=== PATIENT | female | born 1980 | race Caucasian/White ===

== ENCOUNTER 2019-12-16 16:41 | Outpatient (REF) | payer OTHER, SELFPAY ==
[2019-12-16 17:24] LABS: MANUAL DIFF FLAG NO
[2019-12-16 17:31] LABS: Basophils Percent Auto 0.4 % (0-2); Eosinophils Absolute Auto 0.1 X10*3/uL (0.0-0.4); Eosinophils Percent Auto 1.2 % (0-4); Hematocrit 34.7 % (37-47); Hemoglobin 11.7 g/dl (12.0-16.0); Imm Gran Abs Auto 0.03 X10*3/uL (0.00-0.03); Imm Gran Pct Auto 0.4 % (0.0-0.4); Mean Corpuscular HGB Conc 33.7 g/dl (31.0-35.0); Mean Corpuscular Hemoglobin 29.8 pg (27.0-33.0); Mean Corpuscular Volume 88.5 fL (80-98); Mean Platelet Volume 10.4 fL (9.4-12.3); Monocytes Absolute Auto 0.5 X10*3/uL (0.1-1.2); Neutrophils Absolute Auto 5.9 X10*3/uL (2.0-8.3); Platelet Count 487 X10*3/uL (160-400); Red Blood Count 3.92 X10*6/uL (4.20-5.50); White Blood Count 8.6 X10*3/uL (4.8-10.8)
[2019-12-16 17:56] LABS: Alanine Aminotransferase 12 U/L (0-31); Albumin Level 4.1 g/dL (3.5-5.0); Alkaline Phosphatase 54 U/L (39-117); Anion Gap 11 (12-20); Aspartate Amino Transferase 14 U/L (5-31); Bilirubin Total 0.4 mg/dL (0.0-1.0); Blood Urea Nitrogen 12 mg/dL (9-16); C Reactive Protein 2.03 mg/dL (< or = 0.50); Calcium 8.9 mg/dL (8.4-10.2); Carbon Dioxide 24 mmol/L (22-29); Chloride 109 mmol/L (96-108); Estimated Glomerular Filt Rate > 60; Glucose Random 86 mg/dL (60-115); Sodium 140 mmol/L (135-145); Total Protein 7.3 g/dL (6.5-8.0)
[2019-12-16 18:25] LABS: Erythrocyte Sedimentation Rate 34 MM/HR (0-20)
== END 2019-12-16 16:42 | disposition home or self-care (01) ==
LOC: HO.LAB 16:41
PROVIDERS: PCP Internal Medicine; Visit Provider Student in an Organized Health Care Education/Training Program
DX: M05.9 Rheumatoid arthritis with rheumatoid factor, unspecified (principal); Z79.899 Other long term (current) drug therapy
CPT/HCPCS: 36415; 80053; 85025; 85652; 86140

== ENCOUNTER → 2020-01-14 08:01 | Outpatient (BNVA) | payer OTHER, SELFPAY | PROVIDERS: PCP Internal Medicine; Referring Provider Internal Medicine; Visit Provider Student in an Organized Health Care Education/Training Program | DX: Z76.89 Persons encountering health services in other specified circumstances (principal) ==

== ENCOUNTER → 2020-02-22 14:01 | Outpatient (BNVA) | payer OTHER, SELFPAY | PROVIDERS: PCP Internal Medicine; Visit Provider Student in an Organized Health Care Education/Training Program | DX: Z76.89 Persons encountering health services in other specified circumstances (principal) ==

== ENCOUNTER 2020-05-24 10:38 | Outpatient (REF) | payer OTHER, SELFPAY ==
[2020-05-24 11:08] LABS: MANUAL DIFF FLAG NO
[2020-05-24 11:24] LABS: Basophils Percent Auto 0.5 % (0-2); Eosinophils Absolute Auto 0.2 X10*3/uL (0.0-0.4); Eosinophils Percent Auto 3.4 % (0-4); Hematocrit 38.1 % (37-47); Hemoglobin 12.6 g/dl (12.0-16.0); Imm Gran Abs Auto 0.01 X10*3/uL (0.00-0.03); Imm Gran Pct Auto 0.2 % (0.0-0.4); Lymphocytes Absolute Auto 1.9 X10*3/uL (1.2-4.9); Lymphocytes Percent Auto 31.1 % (20-40); Mean Corpuscular HGB Conc 33.1 g/dl (31.0-35.0); Mean Corpuscular Hemoglobin 29.4 pg (27.0-33.0); Mean Corpuscular Volume 88.8 fL (80-98); Mean Platelet Volume 10.5 fL (9.4-12.3); Monocytes Absolute Auto 0.4 X10*3/uL (0.1-1.2); Monocytes Percent Auto 5.9 % (2-11); Neutrophils Absolute Auto 3.6 X10*3/uL (2.0-8.3); Neutrophils Percent Auto 58.9 % (45-73); Platelet Count 427 X10*3/uL (160-400); Red Blood Count 4.29 X10*6/uL (4.20-5.50); Red Cell Distribution Width 13.2 % (11.0-16.0); White Blood Count 6.1 X10*3/uL (4.8-10.8)
[2020-05-24 11:50] LABS: Alanine Aminotransferase 14 U/L (0-31); Albumin Level 4.3 g/dL (3.5-5.0); Alkaline Phosphatase 51 U/L (39-117); Anion Gap 11 (12-20); Aspartate Amino Transferase 13 U/L (5-31); Bilirubin Total 0.6 mg/dL (0.0-1.0); Blood Urea Nitrogen 12 mg/dL (9-16); C Reactive Protein 0.73 mg/dL (< or = 0.50); Carbon Dioxide 23 mmol/L (22-29); Chloride 109 mmol/L (96-108); Estimated Glomerular Filt Rate > 60; Glucose Random 96 mg/dL (60-115); Potassium 4.8 mmol/L (3.3-5.1); Sodium 138 mmol/L (135-145); Total Protein 7.3 g/dL (6.5-8.0)
[2020-05-24 12:44] LABS: Erythrocyte Sedimentation Rate 23 MM/HR (0-20)
== END 2020-05-24 10:39 | disposition home or self-care (01) ==
LOC: HO.LAB 10:38
PROVIDERS: Visit Provider Student in an Organized Health Care Education/Training Program
DX: M05.9 Rheumatoid arthritis with rheumatoid factor, unspecified (principal)
CPT/HCPCS: 36415; 80053; 85025; 85652; 86140

== ENCOUNTER → 2020-06-02 10:40 | Outpatient (BNVA) | payer OTHER, SELFPAY | PROVIDERS: PCP Internal Medicine; Visit Provider Student in an Organized Health Care Education/Training Program ==

== ENCOUNTER 2020-11-01 14:43 | Outpatient (REF) | payer OTHER, SELFPAY ==
[2020-11-01 15:19] LABS: MANUAL DIFF FLAG NO
[2020-11-01 15:24] LABS: Basophils Percent Auto 0.4 % (0-2); Eosinophils Absolute Auto 0.2 X10*3/uL (0.0-0.4); Eosinophils Percent Auto 2.5 % (0-4); Hematocrit 36.7 % (37-47); Hemoglobin 12.6 g/dl (12.0-16.0); Imm Gran Abs Auto 0.02 X10*3/uL (0.00-0.03); Imm Gran Pct Auto 0.3 % (0.0-0.4); Lymphocytes Absolute Auto 2.2 X10*3/uL (1.2-4.9); Lymphocytes Percent Auto 29.3 % (20-40); Mean Corpuscular HGB Conc 34.3 g/dl (31.0-35.0); Mean Corpuscular Hemoglobin 30.7 pg (27.0-33.0); Mean Corpuscular Volume 89.5 fL (80-98); Mean Platelet Volume 10.1 fL (9.4-12.3); Monocytes Absolute Auto 0.4 X10*3/uL (0.1-1.2); Monocytes Percent Auto 5.6 % (2-11); Neutrophils Absolute Auto 4.6 X10*3/uL (2.0-8.3); Neutrophils Percent Auto 61.9 % (45-73); Platelet Count 423 X10*3/uL (160-400); Red Cell Distribution Width 13.6 % (11.0-16.0); White Blood Count 7.3 X10*3/uL (4.8-10.8)
[2020-11-01 15:53] LABS: Alanine Aminotransferase 36 U/L (0-31); Albumin Level 4.4 g/dL (3.5-5.0); Alkaline Phosphatase 52 U/L (39-117); Anion Gap 13 (12-20); Aspartate Amino Transferase 18 U/L (5-31); Bilirubin Total 0.6 mg/dL (0.0-1.0); Blood Urea Nitrogen 11 mg/dL (9-16); C Reactive Protein 0.28 mg/dL (< or = 0.50); Calcium 9.4 mg/dL (8.4-10.2); Carbon Dioxide 22 mmol/L (22-29); Chloride 109 mmol/L (96-108); Estimated Glomerular Filt Rate > 60; Glucose Random 106 mg/dL (60-115); Potassium 4.6 mmol/L (3.3-5.1); Sodium 139 mmol/L (135-145); Total Protein 7.3 g/dL (6.5-8.0)
[2020-11-01 16:09] LABS: Erythrocyte Sedimentation Rate 12 MM/HR (0-20)
== END 2020-11-01 14:44 | disposition home or self-care (01) ==
LOC: HO.LAB 14:43
PROVIDERS: PCP Internal Medicine; Visit Provider Student in an Organized Health Care Education/Training Program
DX: M05.9 Rheumatoid arthritis with rheumatoid factor, unspecified (principal)
CPT/HCPCS: 36415; 80053; 85025; 85652; 86140

== ENCOUNTER → 2021-01-18 11:28 | Outpatient (BNVA) | payer OTHER, SELFPAY | PROVIDERS: PCP Internal Medicine; Visit Provider Nurse Practitioner Family ==

== ENCOUNTER 2021-01-23 11:52 | Outpatient (REF) | payer OTHER, SELFPAY ==
[2021-01-23 12:07] LABS: MANUAL DIFF FLAG NO
[2021-01-23 12:39] LABS: Basophils Percent Auto 0.4 % (0-2); Eosinophils Absolute Auto 0.2 X10*3/uL (0.0-0.4); Hematocrit 36.6 % (37.0-47.0); Hemoglobin 12.4 g/dl (12.0-16.0); Imm Gran Abs Auto 0.02 X10*3/uL (0.00-0.03); Imm Gran Pct Auto 0.3 % (0.0-0.4); Lymphocytes Absolute Auto 2.4 X10*3/uL (1.2-4.9); Lymphocytes Percent Auto 31.9 % (20-40); Mean Corpuscular HGB Conc 33.9 g/dl (31.0-35.0); Mean Corpuscular Hemoglobin 30.5 pg (27.0-33.0); Mean Corpuscular Volume 90.1 fL (80.0-98.0); Mean Platelet Volume 10.4 fL (9.4-12.3); Monocytes Absolute Auto 0.5 X10*3/uL (0.1-1.2); Monocytes Percent Auto 6.2 % (2-11); Neutrophils Absolute Auto 4.4 x10*3/uL (2.0-8.3); Neutrophils Percent Auto 59.2 % (45-73); Platelet Count 444 X10*3/uL (160-400); Red Blood Count 4.06 X10*6/uL (4.20-5.50); Red Cell Distribution Width 13.5 % (11.0-16.0); White Blood Count 7.4 X10*3/uL (4.8-10.8)
[2021-01-23 13:45] LABS: Alanine Aminotransferase 32 U/L (0-31); Albumin Level 4.2 g/dL (3.5-5.0); Alkaline Phosphatase 57 U/L (39-117); Anion Gap 14 (12-20); Aspartate Amino Transferase 18 U/L (5-31); Bilirubin Total 0.7 mg/dL (0.0-1.0); Blood Urea Nitrogen 10 mg/dL (9-16); C Reactive Protein 3.08 mg/dL (< or = 0.50); Calcium 9.1 mg/dL (8.4-10.2); Carbon Dioxide 20 mmol/L (22-29); Chloride 110 mmol/L (96-108); Estimated Glomerular Filt Rate > 60; Glucose Random 111 mg/dL (60-115); Potassium 4.2 mmol/L (3.3-5.1); Sodium 140 mmol/L (135-145); Total Protein 7.2 g/dL (6.5-8.0)
[2021-01-23 13:50] LABS: Erythrocyte Sedimentation Rate 28 MM/HR (0-20)
== END 2021-01-23 11:53 | disposition home or self-care (01) ==
LOC: HO.LAB 11:52
PROVIDERS: Visit Provider Nurse Practitioner Family
DX: M05.9 Rheumatoid arthritis with rheumatoid factor, unspecified (principal); Z79.899 Other long term (current) drug therapy
CPT/HCPCS: 36415; 80053; 85025; 85652; 86140

== ENCOUNTER → 2021-04-24 11:33 | Outpatient (BNVA) | payer OTHER, SELFPAY | PROVIDERS: PCP Internal Medicine; Visit Provider Nurse Practitioner Family ==

== ENCOUNTER 2021-04-26 10:11 | Outpatient (REF) | payer OTHER, SELFPAY ==
--- NOTE | ~2021-04-26 | XR_ITS ---
EXAMINATION: XR TEMPOROMANDIBULAR JOINT, BILATERAL CLINICAL INFORMATION: Rheumatoid arthritis with rheumatoid factor. COMPARISON: None TECHNIQUE: Sarah view and open and closed mouth views of the temporomandibular joints bilaterally. FINDINGS: Imaging is very limited due to overlap of structures. Visualized mastoid air cells and paranasal sinuses are unremarkable. I can only comment on positioning with what appears to be normal translation from anterior to closed positions of the temporomandibular joints. I cannot comment on whether there may be flattening of temporal mandibular joint head or any specific bony abnormality. I can only state that on closed mouth views the mandibular heads appear to be within the temporomandibular joints and on open view they appear to be at the anterior margin of the temporomandibular joints. XR/XR TMJ BI IMPRESSION: Very limited study of the temporomandibular joints with what appears to be normal translation between open and closed mouth views. Aerated paranasal sinuses and mastoid air cells.
[2021-04-26 11:26] LABS: MANUAL DIFF FLAG NO
[2021-04-26 13:00] LABS: Basophils Percent Auto 0.5 % (0-2); Eosinophils Absolute Auto 0.2 X10*3/uL (0.0-0.4); Eosinophils Percent Auto 3.5 % (0-4); Hematocrit 37.9 % (37.0-47.0); Hemoglobin 12.5 g/dl (12.0-16.0); Imm Gran Abs Auto 0.02 X10*3/uL (0.00-0.03); Imm Gran Pct Auto 0.3 % (0.0-0.4); Lymphocytes Absolute Auto 1.9 X10*3/uL (1.2-4.9); Lymphocytes Percent Auto 31.2 % (20-40); Mean Corpuscular Hemoglobin 29.6 pg (27.0-33.0); Mean Corpuscular Volume 89.6 fL (80.0-98.0); Mean Platelet Volume 10.7 fL (9.4-12.3); Monocytes Absolute Auto 0.7 X10*3/uL (0.1-1.2); Monocytes Percent Auto 11.3 % (2-11); Neutrophils Absolute Auto 3.2 x10*3/uL (2.0-8.3); Neutrophils Percent Auto 53.2 % (45-73); Platelet Count 425 X10*3/uL (160-400); Red Blood Count 4.23 X10*6/uL (4.20-5.50); Red Cell Distribution Width 13.6 % (11.0-16.0)
[2021-04-26 13:34] LABS: Alanine Aminotransferase 21 U/L (0-31); Albumin Level 4.1 g/dL (3.5-5.0); Alkaline Phosphatase 52 U/L (39-117); Anion Gap 11 (12-20); Aspartate Amino Transferase 15 U/L (5-31); Bilirubin Total 0.4 mg/dL (0.0-1.0); Blood Urea Nitrogen 14 mg/dL (9-16); C Reactive Protein 0.33 mg/dL (< or = 0.50); Calcium 9.2 mg/dL (8.4-10.2); Carbon Dioxide 24 mmol/L (22-29); Chloride 109 mmol/L (96-108); Estimated Glomerular Filt Rate > 60; Glucose Random 83 mg/dL (60-115); Potassium 4.6 mmol/L (3.3-5.1); Sodium 139 mmol/L (135-145); Total Protein 7.3 g/dL (6.5-8.0)
[2021-04-26 14:08] LABS: Erythrocyte Sedimentation Rate 16 MM/HR (0-20)
== END 2021-04-26 10:12 | disposition home or self-care (01) ==
LOC: HO.XRAY 10:11
PROVIDERS: Visit Provider Nurse Practitioner Family
DX: M05.9 Rheumatoid arthritis with rheumatoid factor, unspecified (principal)
CPT/HCPCS: 36415; 70330; 80053; 85025; 85652; 86140

== ENCOUNTER 2021-08-15 10:09 | Outpatient (REF) | payer OTHER, SELFPAY ==
--- NOTE | ~2021-08-15 | XR_ITS ---
EXAMINATION: LATERAL CLINICAL INFORMATION: Rheumatoid arthritis with knee pain COMPARISON: None TECHNIQUE: Bilateral knees 3 views each FINDINGS: There is no evidence of erosive changes of changes of osteoarthritis. Bones are well-mineralized. Soft tissues are normal. There is no joint effusion is seen bilaterally XR/XR knee LT 3V IMPRESSION: Normal knees bilaterally
--- NOTE | ~2021-08-15 | XR_ITS ---
EXAMINATION: LATERAL CLINICAL INFORMATION: Rheumatoid arthritis with knee pain COMPARISON: None TECHNIQUE: Bilateral knees 3 views each FINDINGS: There is no evidence of erosive changes of changes of osteoarthritis. Bones are well-mineralized. Soft tissues are normal. There is no joint effusion is seen bilaterally XR/XR knee RT 3V IMPRESSION: Normal knees bilaterally
[2021-08-15 10:57] LABS: MANUAL DIFF FLAG NO
[2021-08-15 11:37] LABS: Basophils Percent Auto 0.7 % (0-2); Eosinophils Absolute Auto 0.2 X10*3/uL (0.0-0.4); Eosinophils Percent Auto 4.2 % (0-4); Hematocrit 36.1 % (37.0-47.0); Hemoglobin 12.1 g/dl (12.0-16.0); Imm Gran Abs Auto 0.01 X10*3/uL (0.00-0.03); Imm Gran Pct Auto 0.2 % (0.0-0.4); Lymphocytes Absolute Auto 1.6 X10*3/uL (1.2-4.9); Lymphocytes Percent Auto 35.3 % (20-40); Mean Corpuscular HGB Conc 33.5 g/dl (31.0-35.0); Mean Corpuscular Hemoglobin 29.9 pg (27.0-33.0); Mean Corpuscular Volume 89.1 fL (80.0-98.0); Mean Platelet Volume 10.4 fL (9.4-12.3); Monocytes Absolute Auto 0.4 X10*3/uL (0.1-1.2); Monocytes Percent Auto 9.1 % (2-11); Neutrophils Absolute Auto 2.3 x10*3/uL (2.0-8.3); Neutrophils Percent Auto 50.5 % (45-73); Platelet Count 387 X10*3/uL (160-400); Red Blood Count 4.05 X10*6/uL (4.20-5.50); Red Cell Distribution Width 13.9 % (11.0-16.0); White Blood Count 4.5 X10*3/uL (4.8-10.8)
[2021-08-15 12:10] LABS: Alanine Aminotransferase 16 U/L (0-31); Albumin Level 3.9 g/dL (3.5-5.0); Alkaline Phosphatase 49 U/L (39-117); Anion Gap 11 (12-20); Aspartate Amino Transferase 15 U/L (5-31); Bilirubin Total 0.6 mg/dL (0.0-1.0); Blood Urea Nitrogen 12 mg/dL (9-16); C Reactive Protein 0.41 mg/dL (< or = 0.50); Calcium 9.1 mg/dL (8.4-10.2); Carbon Dioxide 21 mmol/L (22-29); Chloride 110 mmol/L (96-108); Estimated Glomerular Filt Rate > 60; Glucose Random 90 mg/dL (60-115); Potassium 4.5 mmol/L (3.3-5.1); Sodium 137 mmol/L (135-145); Total Protein 7.1 g/dL (6.5-8.0)
[2021-08-15 12:33] LABS: Erythrocyte Sedimentation Rate 20 MM/HR (0-20)
== END 2021-08-15 10:10 | disposition home or self-care (01) ==
LOC: HO.LAB 10:09
PROVIDERS: Visit Provider Nurse Practitioner Family
DX: M05.9 Rheumatoid arthritis with rheumatoid factor, unspecified (principal); M25.562 Pain in left knee; M25.561 Pain in right knee
CPT/HCPCS: 36415; 73562; 80053; 85025; 85652; 86140

== ENCOUNTER 2022-01-19 07:49 | Outpatient (REF) | payer OTHER, SELFPAY ==
[2022-01-19 08:08] LABS: MANUAL DIFF FLAG NO
[2022-01-19 08:46] LABS: Basophils Absolute Auto 0.1 X10*3/uL (0.0-0.2); Basophils Percent Auto 0.8 % (0-2); Eosinophils Absolute Auto 0.2 X10*3/uL (0.0-0.4); Eosinophils Percent Auto 2.5 % (0-4); Hematocrit 36.7 % (37.0-47.0); Hemoglobin 12.5 g/dl (12.0-16.0); Imm Gran Abs Auto 0.02 X10*3/uL (0.00-0.03); Imm Gran Pct Auto 0.3 % (0.0-0.4); Lymphocytes Absolute Auto 2.4 X10*3/uL (1.2-4.9); Lymphocytes Percent Auto 30.5 % (20-40); Mean Corpuscular HGB Conc 34.1 g/dl (31.0-35.0); Mean Corpuscular Hemoglobin 30.4 pg (27.0-33.0); Mean Corpuscular Volume 89.3 fL (80.0-98.0); Mean Platelet Volume 10.4 fL (9.4-12.3); Monocytes Absolute Auto 0.6 X10*3/uL (0.1-1.2); Monocytes Percent Auto 7.1 % (2-11); Neutrophils Absolute Auto 4.6 x10*3/uL (2.0-8.3); Neutrophils Percent Auto 58.8 % (45-73); Platelet Count 419 X10*3/uL (160-400); Red Blood Count 4.11 X10*6/uL (4.20-5.50); Red Cell Distribution Width 13.2 % (11.0-16.0); White Blood Count 7.9 X10*3/uL (4.8-10.8)
[2022-01-19 09:15] LABS: Alanine Aminotransferase 15 U/L (0-31); Albumin Level 4.2 g/dL (3.5-5.0); Alkaline Phosphatase 59 U/L (39-117); Anion Gap 16 (12-20); Aspartate Amino Transferase 12 U/L (5-31); Bilirubin Total 0.5 mg/dL (0.0-1.0); Blood Urea Nitrogen 13 mg/dL (9-16); C Reactive Protein 0.45 mg/dL (< or = 0.50); Calcium 9.2 mg/dL (8.4-10.2); Carbon Dioxide 22 mmol/L (22-29); Chloride 107 mmol/L (96-108); Estimated Glomerular Filt Rate > 60; Glucose Random 95 mg/dL (60-115); Potassium 4.6 mmol/L (3.3-5.1); Sodium 140 mmol/L (135-145); Total Protein 7.3 g/dL (6.5-8.0)
[2022-01-19 09:57] LABS: Erythrocyte Sedimentation Rate 18 MM/HR (0-20)
== END 2022-01-19 07:50 | disposition home or self-care (01) ==
LOC: HO.LAB 07:49
PROVIDERS: Visit Provider Nurse Practitioner Family
DX: M05.9 Rheumatoid arthritis with rheumatoid factor, unspecified (principal)
CPT/HCPCS: 36415; 80053; 85025; 85652; 86140

== ENCOUNTER 2022-06-22 07:27 | Outpatient (REF) | payer OTHER, SELFPAY ==
[2022-06-22 07:38] LABS: MANUAL DIFF FLAG NO
[2022-06-22 08:03] LABS: Basophils Percent Auto 0.6 % (0-2); Eosinophils Absolute Auto 0.2 X10*3/uL (0.0-0.4); Eosinophils Percent Auto 2.7 % (0-4); Hematocrit 37.2 % (37.0-47.0); Hemoglobin 12.8 g/dl (12.0-16.0); Imm Gran Abs Auto 0.01 X10*3/uL (0.00-0.03); Imm Gran Pct Auto 0.1 % (0.0-0.4); Lymphocytes Absolute Auto 2.3 X10*3/uL (1.2-4.9); Lymphocytes Percent Auto 31.5 % (20-40); Mean Corpuscular HGB Conc 34.4 g/dl (31.0-35.0); Mean Corpuscular Hemoglobin 30.3 pg (27.0-33.0); Mean Corpuscular Volume 87.9 fL (80.0-98.0); Monocytes Absolute Auto 0.4 X10*3/uL (0.1-1.2); Neutrophils Absolute Auto 4.2 x10*3/uL (2.0-8.3); Neutrophils Percent Auto 59.1 % (45-73); Platelet Count 458 X10*3/uL (160-400); Red Blood Count 4.23 X10*6/uL (4.20-5.50); Red Cell Distribution Width 13.8 % (11.0-16.0); White Blood Count 7.2 X10*3/uL (4.8-10.8)
[2022-06-22 08:49] LABS: Erythrocyte Sedimentation Rate 20 MM/HR (0-20)
[2022-06-22 08:58] LABS: Alanine Aminotransferase 19 U/L (0-31); Albumin Level 4.1 g/dL (3.5-5.0); Alkaline Phosphatase 62 U/L (39-117); Anion Gap 12 (12-20); Aspartate Amino Transferase 12 U/L (5-31); Bilirubin Total 0.6 mg/dL (0.0-1.0); Blood Urea Nitrogen 11 mg/dL (9-16); C Reactive Protein 0.62 mg/dL (< or = 0.50); Calcium 8.9 mg/dL (8.4-10.2); Carbon Dioxide 23 mmol/L (22-29); Chloride 109 mmol/L (96-108); Estimated Glomerular Filt Rate > 60; Glucose Random 98 mg/dL (60-115); Potassium 4.7 mmol/L (3.3-5.1); Sodium 139 mmol/L (135-145); Total Protein 7.1 g/dL (6.5-8.0)
== END 2022-06-22 07:28 | disposition home or self-care (01) ==
LOC: HO.LAB 07:27
PROVIDERS: PCP Internal Medicine; Visit Provider Nurse Practitioner Family
DX: M05.9 Rheumatoid arthritis with rheumatoid factor, unspecified (principal)
CPT/HCPCS: 36415; 80053; 85025; 85652; 86140

== ENCOUNTER → 2022-07-29 12:50 | Outpatient (BNVA) | payer OTHER, SELFPAY | PROVIDERS: PCP Internal Medicine; Visit Provider Nurse Practitioner Family ==

== ENCOUNTER 2022-09-21 07:33 | Outpatient (REF) | payer OTHER, SELFPAY ==
[2022-09-21 08:53] LABS: Alanine Aminotransferase 14 U/L (0-31); Alkaline Phosphatase 53 U/L (39-117); Anion Gap 13 (12-20); Aspartate Amino Transferase 11 U/L (5-31); Bilirubin Total 0.5 mg/dL (0.0-1.0); Blood Urea Nitrogen 11 mg/dL (9-16); C Reactive Protein 0.59 mg/dL (< or = 0.50); Calcium 8.9 mg/dL (8.4-10.2); Carbon Dioxide 19 mmol/L (22-29); Chloride 111 mmol/L (96-108); Estimated Glomerular Filt Rate > 60; Glucose Random 102 mg/dL (60-115); Potassium 3.9 mmol/L (3.3-5.1); Sodium 139 mmol/L (135-145); Total Protein 7.5 g/dL (6.5-8.0)
== END 2022-09-21 07:34 | disposition home or self-care (01) ==
LOC: HO.LAB 07:33
PROVIDERS: PCP Internal Medicine; Visit Provider Nurse Practitioner Family
DX: M05.9 Rheumatoid arthritis with rheumatoid factor, unspecified (principal)
CPT/HCPCS: 36415; 80053; 85025; 85652; 86140

== ENCOUNTER 2022-12-24 09:42 | Outpatient (AMB) | payer OTHER, SELFPAY ==
--- NOTE | 2022-12-24 09:46 | MHC.OFFVIS ---
Intake Vital Signs 12/24/22 09:52 Height 5 ft 6 in Weight 247 lb 5.738 oz BMI 39.9 BP 104/72 Blood Pressure Location Lt brachial Position Sitting Pulse 95 Pulse Source Pulse Oximeter Temp 97.6 F Temp Source Skin Pulse Oximetry (%) 98 Oxygen Delivery Method Room Air Intake Visit Reasons: Rheumatoid arthritis Intake Note: Patient presents today for RA follow up. Neurosurgical Nurse Practitioner Required: No Accompanied by: Self / Same As Patient Allergies No Known Allergies Allergy (Verified 12/24/22 09:47) Medication List - Last Reconciled 12/24/22 by Kevin Poole MD acetaminophen (Tylenol Extra Strength) 1,000 mg PO Q6H PRN certolizumab pegol (Cimzia) 200 mg subcut Q2W folic acid 1 mg PO DAILY methotrexate sodium 20 mg (8 x 2.5 mg) PO QWEEK metronidazole 0.75% 1 appl topical BID HPI HPI Comments History of Present Illness Details The patient presents for evaluation of rheumatoid arthritis. She remains on methotrexate 20 mg weekly, folic acid 1 mg daily, and 200 mg Cimzia injections every 2 weeks. Since the addition of the Cimzia a few years ago she has done fine with minimal joint symptoms. She did have a red rash on the face, thought to be rosacea and she was prescribed some metronidazole cream. That seems to be helping. She is getting occasional low back pain, usually after a busier work day. She also noted some back pain radiating to the left buttock after doing some substantial walking at the [place] recently. She does take 1 or 2 [id number] ibuprofen if needed and that is helpful. 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 She does not believe there has been any side effects with current medical regimen. [facility] Medical History Seropositive rheumatoid arthritis Surgical History (Updated 12/24/22 @ 09:53 by SWETA Thurston) History of surgery History of carpal tunnel surgery Hx of tubal ligation H/O breast biopsy Hx of bilateral breast reduction surgery Family History Mother No problems noted. Father No problems noted. 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 Card Details: Negative chest pain, edema and syncope Resp Details: Negative for SOB, cough and wheezing GI Details: Negative indigestion/heartburn, nausea, abdominal pain, bowel changes, diarrhea, constipation and bloody stool. Arsen/Lymph Details: Negative for excessive bruising or bleeding. Physical Exam Vital Signs: Last Vital Signs Temp 97.6 F 12/24/22 09:52 Pulse 95 12/24/22 09:52 BP 104/72 12/24/22 09:52 Pulse Ox 98 12/24/22 09:52 Oxygen Delivery Method Room Air 12/24/22 09:52 BMI result Body Mass Index 39.9 APPEARANCE: Patient in no acute distress EYES no redness, pupils equal and reactive to light, eyelids normal ABD: Normal bowel sounds, no organomegaly, masses or tenderness. EXTREMITIES: No edema, no calf tenderness, normal peripheral pulses. NEURO: Oriented and alert x3. No focal weakness. Reflexes symmetric. Gait normal. JOINT EXAM:? Cervical Spine:? Full range of motion without pain; no tenderness. Thoracic Spine:?No tenderness on palpation. Lumbar Spine:? Alignment normal.? Full range of motion without pain, no tenderness. Hands:? Normal pain-free range of motion without tenderness, swelling, increased warmth or erythema. Able to make a full fist and has a good chocolate dipper strength. Wrists:? Normal pain-free range of motion without tenderness, swelling, increased warmth or erythema. Elbows: Normal pain-free range of motion without tenderness, swelling, increased warmth or erythema. Shoulders:?? Full range of motion without pain. No tenderness, weakness, swelling, increased warmth or erythema. Hips:? Full range of motion without pain. Hip bursa:? No tenderness. Knees:?? Normal pain-free range of motion with mild patellofemoral crepitus but no effusion, tenderness, swelling, increased warmth or erythema.? Ankles:? Normal pain-free range of motion without tenderness, swelling, increased warmth or erythema. Feet:? Normal pain-free range of motion without tenderness, swelling, increased warmth or erythema. ? Results Reviewed Results Reviewed: Laboratory Tests 09/21/22 07:49 WBC 9.3 Hgb 11.9 L ESR 23 H Creatinine 0.79 AST 11 ALT 14 C-Reactive Protein 0.59 H Assessment & Plan Assessment & Plan (1) correction methotrexate user: Code(s): Z79.899 - Other superintendent terminal (current) drug therapy (2) Seropositive rheumatoid arthritis: Comment: Patient started on methotrexate August 2019, Humira added December 2019 due to active disease. 06/03/2020 switch to Enbrel due to active disease, Enbrel was denied and patient was started on Cimzia. Methotrexate August 2019-present Cimzia- May 2020-present Code(s): M05.9 - Rheumatoid arthritis with rheumatoid factor, unspecified Plan Rheumatoid arthritis with no apparent synovitis on exam today. The patient is having some low back pain, likely due to a degenerative process. We would check lab today and if that looks okay we will continue with current medications. Weight loss and light aerobic activity are encouraged. I offered her some physical therapy for the back problem but she declined for now. We will recheck lab work today in 3 months and see her back at that point. Orders: Orders Alanine Aminotransferase Today M05.9 - Rheumatoid arthritis with rheumatoid factor, unspecified, Z79.899 - Other superintendent terminal (current) drug therapy Erythrocyte Sedimentation Rate Today M05.9 - Rheumatoid arthritis with rheumatoid factor, unspecified C Reactive Protein Today M05.9 - Rheumatoid arthritis with rheumatoid factor, unspecified Aspartate Amino Transferase Today M05.9 - Rheumatoid arthritis with rheumatoid factor, unspecified, Z79.899 - Other superintendent terminal (current) drug therapy Complete Blood Count Auto Diff Today M05.9 - Rheumatoid arthritis with rheumatoid factor, unspecified, Z79.899 - Other correction (current) drug therapy Creatinine Today M05.9 - Rheumatoid arthritis with rheumatoid factor, unspecified, Z79.899 - Other correction (current) drug therapy Coding Level of Care Code Est Pt Level 3 (38891) Diagnoses correction methotrexate user Z79.899 Seropositive rheumatoid arthritis M05.9
[2022-12-24 09:52] VITALS: BP 104/72; PULSE 95; TEMP 36.4; O2SAT 98; BMI 39.9
== END 2022-12-24 10:31 | disposition home or self-care (01) ==
PROVIDERS: PCP Internal Medicine; Visit Provider Internal Medicine Rheumatology
DX: M05.79 Rheumatoid arthritis with rheumatoid factor of multiple sites without organ or systems involvement (principal); Z79.631 Long term (current) use of antimetabolite agent
CPT/HCPCS: 99214

== ENCOUNTER → 2022-12-24 09:42 | Outpatient (BNVA) | payer OTHER, SELFPAY | PROVIDERS: PCP Internal Medicine; Visit Provider Internal Medicine Rheumatology ==

== ENCOUNTER 2022-12-24 10:44 | Outpatient (REF) | payer OTHER, SELFPAY | END 2022-12-24 10:45 | disposition home or self-care (01) | LOC: HO.10HDL 10:44 | PROVIDERS: Visit Provider Internal Medicine Rheumatology | DX: M05.9 Rheumatoid arthritis with rheumatoid factor, unspecified (principal); Z79.899 Other long term (current) drug therapy | CPT/HCPCS: 36415; 82565; 84450; 84460; 85025; 85652; 86140 ==

== ENCOUNTER 2023-01-06 13:35 | Outpatient (REF) | payer OTHER, SELFPAY ==
[2023-01-06 14:46] LABS: Alanine Aminotransferase 22 U/L (0-31); Albumin Level 4.4 g/dL (3.5-5.0); Alkaline Phosphatase 60 U/L (39-117); Aspartate Amino Transferase 16 U/L (5-31); Bilirubin Direct 0.2 mg/dL (0.0-0.5); Bilirubin Total 0.5 mg/dL (0.0-1.0); Total Protein 8.2 g/dL (6.5-8.0)
== END 2023-01-06 13:36 | disposition home or self-care (01) ==
LOC: HO.LAB 13:35
PROVIDERS: PCP Internal Medicine; Visit Provider Internal Medicine Rheumatology
DX: R74.01 Elevation of levels of liver transaminase levels (principal); Z79.899 Other long term (current) drug therapy
CPT/HCPCS: 36415; 80076

== ENCOUNTER 2023-03-28 16:40 | Outpatient (REF) | payer OTHER, SELFPAY ==
[2023-03-28 16:50] LABS: MANUAL DIFF FLAG NO
[2023-03-28 17:23] LABS: Basophils Absolute Auto 0.1 X10*3/uL (0.0-0.2); Basophils Percent Auto 0.7 % (0-2); Eosinophils Absolute Auto 0.1 X10*3/uL (0.0-0.4); Eosinophils Percent Auto 1.6 % (0-4); Hematocrit 37.7 % (37.0-47.0); Hemoglobin 12.5 g/dl (12.0-16.0); Imm Gran Abs Auto 0.01 X10*3/uL (0.00-0.03); Imm Gran Pct Auto 0.1 % (0.0-0.4); Lymphocytes Absolute Auto 2.8 X10*3/uL (1.2-4.9); Lymphocytes Percent Auto 38.8 % (20-40); Mean Corpuscular HGB Conc 33.2 g/dl (31.0-35.0); Mean Corpuscular Hemoglobin 28.9 pg (27.0-33.0); Mean Corpuscular Volume 87.1 fL (80.0-98.0); Monocytes Absolute Auto 0.3 X10*3/uL (0.1-1.2); Monocytes Percent Auto 4.3 % (2-11); Neutrophils Percent Auto 54.5 % (45-73); Platelet Count 286 X10*3/uL (160-400); Red Blood Count 4.33 X10*6/uL (4.20-5.50); Red Cell Distribution Width 13.9 % (11.0-16.0); White Blood Count 7.3 X10*3/uL (4.8-10.8)
[2023-03-28 18:01] LABS: Erythrocyte Sedimentation Rate 20 MM/HR (0-20)
[2023-03-28 18:35] LABS: Alanine Aminotransferase 39 U/L (0-31); Aspartate Amino Transferase 28 U/L (5-31); C Reactive Protein 0.42 mg/dL (< or = 0.50); Estimated Glomerular Filt Rate > 60
== END 2023-03-28 16:41 | disposition home or self-care (01) ==
LOC: HO.LAB 16:40
PROVIDERS: PCP Internal Medicine; Visit Provider Internal Medicine Rheumatology
DX: M05.9 Rheumatoid arthritis with rheumatoid factor, unspecified (principal); Z79.899 Other long term (current) drug therapy
CPT/HCPCS: 36415; 82565; 84450; 84460; 85025; 85652; 86140

== ENCOUNTER 2023-04-02 13:55 | Outpatient (AMB) | payer OTHER, SELFPAY ==
[2023-04-02 13:59] VITALS: BP 90/58; PULSE 108; TEMP 36.1; O2SAT 97; BMI 40.4
--- NOTE | 2023-04-02 13:59 | MHC.OFFVIS ---
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 c/o landon thigh numbness and tingling x 6 wks on and off Optical Instrument Specialist Required: No Accompanied by: Self / Same As Patient Allergies No Known Allergies Allergy (Verified 04/02/23 14:02) HPI HPI Comments History of Present Illness Details Ms Piedad 42 yoF presents for followup of rheumatoid arthritis. She remains on methotrexate 20 mg weekly, folic acid 1 mg daily, and 200 mg Cimzia injections every 2 weeks. She reports doing well on this regiment with minimal joint symptoms. She is getting occasional low back pain, usually after a busier work day. She does take 1 or 2 [id number] ibuprofen if needed and that is helpful. 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 She does not believe there has been any side effects with current medical regimen. She has developed a rash primarily to her abdomen with in the last week. She reports it is very itchy. [facility] Medical History (Updated 04/02/23 @ 14:29 by Kassandra Melendez [facility]-) Obesity, morbid, BMI 40.0-49.9 Rash, skin Psoriasis (a type of skin inflammation) Seropositive rheumatoid arthritis Surgical History History of surgery History of carpal tunnel surgery Hx of tubal ligation H/O breast biopsy Hx of bilateral breast reduction surgery Family History Mother No problems noted. Father No problems noted. 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 NEURO: Oriented and alert x3. No focal weakness. Reflexes symmetric. Gait normal. JOINT EXAM:? Hands:? Normal pain-free range of motion without tenderness, swelling, increased warmth or erythema. Able to make a full fist and has a good boat rental clerk strength. Wrists:? Normal pain-free range of motion without tenderness, swelling, increased warmth or erythema. Elbows: Normal pain-free range of motion without tenderness, swelling, increased warmth or erythema. Shoulders:?? Full range of motion without pain. No tenderness, weakness, swelling, increased warmth or erythema. Hips:? Full range of motion without pain. Hip bursa:? No tenderness. Knees:?? Normal pain-free range of motion with mild patellofemoral crepitus but no effusion, tenderness, swelling, increased warmth or erythema.? Ankles:? Normal pain-free range of motion without tenderness, swelling, increased warmth or erythema. Feet:? Normal pain-free range of motion without tenderness, swelling, increased warmth or erythema. ? Results Reviewed Results Reviewed: Laboratory Tests 03/28/23 16:48 WBC 7.3 RBC 4.33 Hgb 12.5 MCV 87.1 Plt Count 286 D ESR 20 Creatinine 0.73 Estimated GFR > 60 AST 28 ALT 39 H C-Reactive Protein 0.42 Assessment & Plan Assessment & Plan (1) senior care methotrexate user: Code(s): Z79.899 - Other custodial (current) drug therapy (2) Seropositive rheumatoid arthritis: Comment: Patient started on methotrexate August 2019, Humira added December 2019 due to active disease. 06/03/2020 switch to Enbrel due to active disease, Enbrel was denied and patient was started on Cimzia. Methotrexate August 2019-present Cimzia- May 2020-present Code(s): M05.9 - Rheumatoid arthritis with rheumatoid factor, unspecified (3) Rash, skin: Code(s): R21 - Rash and other nonspecific skin eruption (4) Psoriasis (a type of skin inflammation): Code(s): L40.9 - Psoriasis, unspecified (5) Obesity, morbid, BMI 40.0-49.9: Code(s): E66.01 - Morbid (severe) obesity due to excess calories Plan #Seropositve RA: Ms. Herbert, a 42yoF is here for follow-up of her Rheumatoid arthritis with no apparent synovitis on exam today. The ESR and CRP are at goal which is an improvement from 12/2022 values. The patient is having some low back pain, likely due to a degenerative process and possibly obesity. #supervisor intermediates use of Immunosup: Monitoring labs are grossly normal so we will continue with current medications. Labs do not show blood dyscrasias. She has a chronic mild elevation in ALT that remains, but kidney function is good. We will recheck labs in 4 months and see her back at that point. #Obesity-Morbid: BMI 40.4. I Continue to encourage Weight loss and light aerobic activity. We will discuss nutritional referral at next visit. #Rash/possibly PsO: She has some scattered lesions to her abdomen and lower back that has the appearance of Psoriasis. Developing Psoriasis on a TNF inhibitor is a known side effect. It is a mild occurrence at this point so I do not want to change her current regiment given that her joints are stable. I will prescribe topical clobetasol .05%. patient will apply BID for two weeks and then take a holiday. Discussed with patient that Topical steroids can thin the skin so use as prescribed and do take the drug holiday. If the rash persists, I will consider to change to skiriza or Rinvoq. I spent 30 minutes reviewing chart, evaluating patient and documenting. Orders: Orders Complete Blood Count Auto Diff Today M05.9 - Rheumatoid arthritis with rheumatoid factor, unspecified, R74.01 - Elevation of levels of liver transaminase levels, Z79.899 - Other intermodal customer service (current) drug therapy Comprehensive Met. Panel Today M05.9 - Rheumatoid arthritis with rheumatoid factor, unspecified, R74.01 - Elevation of levels of liver transaminase levels, Z79.899 - Other intermodal customer service (current) drug therapy C Reactive Protein Today M05.9 - Rheumatoid arthritis with rheumatoid factor, unspecified, R74.01 - Elevation of levels of liver transaminase levels, Z79.899 - Other custodial (current) drug therapy Erythrocyte Sedimentation Rate Today M05.9 - Rheumatoid arthritis with rheumatoid factor, unspecified, R74.01 - Elevation of levels of liver transaminase levels, Z79.899 - Other intermodal customer service (current) drug therapy Medications: New clobetasol 0.05% 1 appl topical BID 2 weeks 100 grams 0RF L40.9 - Psoriasis, unspecified, R21 - Rash and other nonspecific skin eruption Coding Level of Care Code Est Pt Level 4 (10956) Diagnoses supervisor intermediates methotrexate user Z79.899 Seropositive rheumatoid arthritis M05.9 Rash, skin R21 Psoriasis (a type of skin inflammation) L40.9 Obesity, morbid, BMI 40.0-49.9 E66.01
== END 2023-04-02 14:26 | disposition home or self-care (01) ==
PROVIDERS: PCP Internal Medicine; Visit Provider Nurse Practitioner Family
DX: M05.79 Rheumatoid arthritis with rheumatoid factor of multiple sites without organ or systems involvement (principal); Z79.899 Other long term (current) drug therapy; R21 Rash and other nonspecific skin eruption; L40.9 Psoriasis, unspecified; E66.01 Morbid (severe) obesity due to excess calories
CPT/HCPCS: 99214

== ENCOUNTER → 2023-04-02 13:55 | Outpatient (BNVA) | payer OTHER, SELFPAY | PROVIDERS: PCP Internal Medicine; Visit Provider Nurse Practitioner Family ==

== ENCOUNTER 2023-07-15 13:10 | Outpatient (AMB) | payer OTHER, SELFPAY ==
--- NOTE | 2023-07-15 13:17 | MHC.PC.OV ---
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 Intake Note: New patient visit Scientist Required: No Is last menstrual period known: Yes Last menstrual period: 07/04/23 Allergies No Known Allergies Allergy (Verified 07/15/23 13:18) Medication List - Last Reconciled 07/15/23 by Dorothy Vidal PA-C acetaminophen (Tylenol Extra Strength) 1,000 mg PO Q6H PRN certolizumab pegol (Cimzia) 200 mg subcut Q2W clobetasol 0.05% 1 appl topical BID 2 weeks folic acid 1 mg PO DAILY methotrexate sodium 20 mg (8 x 2.5 mg) PO QWEEK metronidazole 0.75% 1 appl topical BID norethindrone (contraceptive) (Lianne) 0.35 mg PO DAILY Tobacco use date assessed: 07/15/23 Dental Screening Dental Screen Date: 07/15/23 Did you have a dental visit in the last 12 months?: No Did you have a dental problem in the last 6 months where you did not have access to dental care?: No Was dental information given to patient?: No (patient is on a wait list) HPI 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 She is transferring from [facility], Dr. Sheridan but has not been seen in 4 years. She states that she made this appointment because she is very frustrated with her weight. She states her cousin takes zepbound and it works for her. She has tried intermittent fasting, dieting, calorie counting. She has a hard time exercising because she has RA. We reivewed the phq9 and anxiety scores. She states she is stressed about her weight and thinks she feels tired because of the obesity. She states losing weight would help her mental health. CV: Blood pressure today in the office is 110/70. No chest pain, shortness of breath or palpitations. Musculoskeletal: Following with [facility] rheumatology. She remains on methotrexate 20 mg weekly, folic acid 1 mg daily, and 200 mg Cimzia injections every 2 weeks. She reports doing well on this regiment with minimal joint symptoms. Derm: Follows with [facility] for psoriasis and is well controlled with clobetasol prn Mammogram: 10/2022-utd - [facility] Pap: 10/18/2022 WNL- [facility] with [facility] Colonoscopy: 05/02/2022 -hyperplastic polyp sigmoid colon. due in 2027 Eye: goes every 6 months Dental: goes q 6 months [facility] Medical History (Updated 07/15/23 @ 13:51 by Dorothy Vidal PA-C) Carpal tunnel syndrome Plantar fasciitis Obesity, morbid, BMI 40.0-49.9 Rash, skin Psoriasis (a type of skin inflammation) Seropositive rheumatoid arthritis Surgical History (Updated 07/15/23 @ 13:40 by Nereyda Cardoza CMA) Hx of colonoscopy H/O esophagogastroduodenoscopy History of surgery History of carpal tunnel surgery Hx of tubal ligation H/O breast biopsy Hx of bilateral breast reduction surgery Family History (Updated 07/15/23 @ 13:21 by Nereyda Cardoza CMA) Mother No problems noted. Father No problems noted. 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 1. Little interest or pleasure in doing things: not at all 2. Feeling down, depressed, or hopeless: several days 3. Trouble falling or staying asleep, or sleeping too much: more than half the days 4. Feeling tired or having little energy: more than half the days 5. Poor appetite or overeating: not at all 6. Feeling bad about yourself - or that you are a failure or have let yourself or your family down: not at all 7. Trouble concentrating on things, such as reading the newspaper or watching television: not at all 8. Moving or speaking so slowly that other people could have noticed. Or the opposite - being so fidgety or restless that you have been moving around a lot more than usual: not at all 9. Thoughts that you would be better off or of hurting yourself in some way: not at all Total score: 5 Depression Screening Interpretation: Positive Depression Screening Follow-up: Declines treatment Depression Screening Done: Yes 94250 - PHQ-9 Billing: Yes Source: Developed by Drs. Maciel Michele, Aimee Holt, Jossue Hoskins and colleagues, with an educational linda from [employer]. Thrive Questionnaire Date Thrive assessed: 07/15/23 I am a: Patient What is your living situation today?: I have a steady place to live Within the past 12 months, did the food you bought not last and you didn't have the money to get more?: Never true Within the past 12 months, did you worry whether your food would run out before you got money to buy more?: Never true Do you have trouble paying for medicines?: No Do you have trouble getting transportation to medical appointments?: No Do you have trouble paying your heating and electricity bill?: No Do you have trouble taking care of your child, family member or friend?: No Do you have trouble with day-to-day activities such as bathing, preparing meals, shopping, managing finances, etc.?: No Are you currently unemployed and looking for a job?: No Are you interested in more education?: No Please select the resources that you would like help with: None Currently or been in a relationship where the following occur: no concerns reported THRIVE Score: 0 AUDIT C Alcohol Use Questionnaire (AUDIT-C) 1. How often do you have a drink containing alcohol?: Never 3. How often do you have six or more drinks on one occasion?: Never Total Score: 0 Score Reviewed/Action Taken: Yes LJ-7 AMB Questionnaire LJ-7 Date LJ - 7 assessed: 07/15/23 Feeling nervous, anxious, or on edge: 1 = Several days Not being able to stop or control worryin = Several days Worrying too much about different things: 1 = Several days Trouble relaxin = Several days Being so restless that it is hard to sit still: 0 = Not at all Becoming easily annoyed or irritable: 0 = Not at all Feeling afraid as if something awful might happen: 0 = Not at all Total LJ-7 score (0-4 normal; 5-9 mild; 10-14 moderate; 15-21 severe): 4 Source: Developed by Drs. Maciel Michele, Aimee Holt, Jossue Hoskins and colleagues, with an educational linda from [employer]. LJ-7 Assessment Billing LJ-7 Assessment Tool: LJ-7 Assessment 16289 Physical exam (Primary Care) Vital Signs: Last Vital Signs Temp 98.5 F 07/15/23 13:24 Pulse 105 H 07/15/23 13:24 Resp 14 07/15/23 13:24 BP 110/78 07/15/23 13:24 Pulse Ox 98 07/15/23 13:24 Oxygen Delivery Method Room Air 07/15/23 13:24 BMI result Body Mass Index 40.3 Tobacco/Smoking Status: Tobacco use Status Tobacco use date assessed 07/15/23 07/15/23 13:24 Patient Tobacco Use Status Never used Tobacco 07/15/23 13:24 e-Cigarette/Vaping Use Never Used 07/15/23 13:24 Depression Screening Interpretation: Positive Depression Screening Follow-up: Declines treatment Currently or been in a relationship where the following occur: no concerns reported Const Orientation/consciousness: patient oriented x3 HENMT Ears: hearing grossly normal bilaterally and TM's normal bilaterally General nose exam: No nasal polyps present Face and sinus: Yes sinuses nontender Mouth: Normal oral and palatal mucosa present Eyes Pupils: Equal, round and reactive pupils present EOM: EOMs intact bilaterally Neck Neck: Yes full ROM and Yes no lymphadenopathy Thyroid: Thyroid normal Chest Chest palpation & inspection: normal inspection of the chest Resp Auscultation: clear to auscultation bilaterally Cardio Rate: regular rate Rhythm: regular rhythm Heart sounds: S1 normal heart sound present and S2 normal heart sound present Peripheral pulses: Peripheral pulses 2+ throughout GI Other: Soft, nontender Auscultation: normal bowel sounds Rectal Exam - Female: deferred General: Yes no CVA tenderness Back/Spine/Pelvis Other: Nontender Back: no CVA tenderness Skin General skin exam: no rashes or lesions noted Neuro General: patient oriented x3, gait normal, CN's II-XI intact bilaterally and deep tendon reflexes 2+ bilaterally Cranial nerves: Yes Equal, round and reactive pupils present Motor exam (neuro): 5/5 motor strength present throughout Sensory Exam: double simultaneous stimulation for sensation normal Coordination: [id number] test normal and Romberg test negative Extrem General: Yes normal to inspection and Yes full ROM Psych Affect: normal affect Attitude: cooperative Thought process: Normal thought process present Thought content: Normal thought content present Insight: Good insight present (Psych) Judgement: Good judgement present (Psych) Results Reviewed Results Reviewed: Laboratory Tests 12/24/22 01/06/23 03/28/23 10:50 13:56 16:48 WBC 7.3 RBC 4.33 Hgb 12.5 Hct 37.7 Plt Count 286 D Creatinine 0.73 Estimated GFR > 60 AST 28 ALT 59 H 22 39 H C-Reactive Protein 0.42 Assessment and Plan Assessment & Plan (1) Routine general medical examination at a health care facility: Code(s): Z00.00 - Encounter for general adult medical examination without abnormal findings Plan: reviewed Labs ordered (2) Seropositive rheumatoid arthritis: Comment: Patient started on methotrexate August 2019, Humira added December 2019 due to active disease. 06/03/2020 switch to Enbrel due to active disease, Enbrel was denied and patient was started on Cimzia. Methotrexate August 2019-present Cimzia- May 2020-present Code(s): M05.9 - Rheumatoid arthritis with rheumatoid factor, unspecified Plan: continue follow up [place] [facility] [place] discussed importance of weight loss and low stress exercise (3) Obesity, morbid, BMI 40.0-49.9: Code(s): E66.01 - Morbid (severe) obesity due to excess calories Plan: labs reviewed zepbound ordered. discussed it may not get covered by insurance. discussed risks, benefits and adverse effects such as n/v, constipation, increased risk of thyroid cancer, pancreatitis. offered referral to gas processing plant operator and declines. will let me know if she wants to go to weight management. discussed the importance of diet and lifestyle modifications. Orders: Orders TSH reflex Free T4 Today E66.01 - Morbid (severe) obesity due to excess calories, M05.9 - Rheumatoid arthritis with rheumatoid factor, unspecified, Z00.00 - Encounter for general adult medical examination without abnormal findings Vitamin B12 and Folate Today E66.01 - Morbid (severe) obesity due to excess calories, M05.9 - Rheumatoid arthritis with rheumatoid factor, unspecified, Z00.00 - Encounter for general adult medical examination without abnormal findings IRON PROFILE Today E66.01 - Morbid (severe) obesity due to excess calories, M05.9 - Rheumatoid arthritis with rheumatoid factor, unspecified, Z00.00 - Encounter for general adult medical examination without abnormal findings Complete Blood Count Auto Diff Today E66.01 - Morbid (severe) obesity due to excess calories, M05.9 - Rheumatoid arthritis with rheumatoid factor, unspecified, Z00.00 - Encounter for general adult medical examination without abnormal findings Lipid Panel Today E66.01 - Morbid (severe) obesity due to excess calories, M05.9 - Rheumatoid arthritis with rheumatoid factor, unspecified, Z00.00 - Encounter for general adult medical examination without abnormal findings Medications: New tirzepatide (weight loss) (Zepbound) 2.5 mg (0.5 mL) subcut QWEEK 4 weeks 2 mL 2RF Coding Level of Care Code New Pt Prev Care 40-64y(31094) Diagnoses Routine general medical examination at a health care facility Z00.00 Seropositive rheumatoid arthritis M05.9 Obesity, morbid, BMI 40.0-49.9 E66.01 Additional Codes LJ-7 Assessment Billing - LJ-7 Assessment Tool: LJ-7 Assessment 09108 ([id number])
[2023-07-15 13:24] VITALS: BP 110/78; PULSE 105; RESP 14; TEMP 36.9; O2SAT 98; BMI 40.3
== END 2023-07-15 14:07 | disposition home or self-care (01) ==
PROVIDERS: PCP Physician Assistant; Visit Provider Physician Assistant
DX: Z00.00 Encounter for general adult medical examination without abnormal findings (principal); M05.9 Rheumatoid arthritis with rheumatoid factor, unspecified; E66.01 Morbid (severe) obesity due to excess calories; Z68.41 Body mass index [BMI] 40.0-44.9, adult
CPT/HCPCS: 99386

== ENCOUNTER 2023-07-18 07:07 | Outpatient (REF) | payer OTHER, SELFPAY ==
[2023-07-18 11:25] LABS: MANUAL DIFF FLAG NO
[2023-07-18 11:31] LABS: Basophils Absolute Auto 0.1 X10*3/uL (0.0-0.2); Basophils Percent Auto 0.8 % (0-2); Eosinophils Absolute Auto 0.2 X10*3/uL (0.0-0.4); Hematocrit 35.9 % (37.0-47.0); Hemoglobin 12.3 g/dl (12.0-16.0); Imm Gran Abs Auto 0.04 X10*3/uL (0.00-0.03); Imm Gran Pct Auto 0.5 % (0.0-0.4); Lymphocytes Absolute Auto 2.6 X10*3/uL (1.2-4.9); Lymphocytes Percent Auto 32.3 % (20-40); Mean Corpuscular HGB Conc 34.3 g/dl (31.0-35.0); Mean Corpuscular Hemoglobin 30.2 pg (27.0-33.0); Mean Corpuscular Volume 88.2 fL (80.0-98.0); Mean Platelet Volume 10.2 fL (9.4-12.3); Monocytes Absolute Auto 0.7 X10*3/uL (0.1-1.2); Monocytes Percent Auto 8.2 % (2-11); Neutrophils Absolute Auto 4.4 x10*3/uL (2.0-8.3); Neutrophils Percent Auto 55.2 % (45-73); Platelet Count 443 X10*3/uL (160-400); Red Blood Count 4.07 X10*6/uL (4.20-5.50); Red Cell Distribution Width 14.2 % (11.0-16.0)
[2023-07-18 12:07] LABS: Erythrocyte Sedimentation Rate 48 MM/HR (0-20)
[2023-07-18 12:32] LABS: TSH reflex Free T4 1.76 uIU/mL (0.32-4.0)
[2023-07-18 12:57] LABS: Alanine Aminotransferase 19 U/L (0-31); Albumin Level 4.2 g/dL (3.5-5.0); Alkaline Phosphatase 60 U/L (39-117); Anion Gap 14 (12-20); Aspartate Amino Transferase 13 U/L (5-31); Bilirubin Total 0.5 mg/dL (0.0-1.0); Blood Urea Nitrogen 11 mg/dL (9-16); C Reactive Protein 1.76 mg/dL (< or = 0.50); Calcium 9.2 mg/dL (8.4-10.2); Carbon Dioxide 20 mmol/L (22-29); Chloride 107 mmol/L (96-108); Cholesterol 188 mg/dL (<200); Estimated Glomerular Filt Rate > 60; Glucose Random 90 mg/dL (60-115); HDL Cholesterol 48 mg/dL (>40); Iron 50 mcg/dL (30-160); LDL Cholesterol Calculated 121 mg/dL (<100); Percent Iron Saturation 20 % (15-50); Potassium 4.1 mmol/L (3.3-5.1); Sodium 137 mmol/L (135-145); Total Iron Binding Capacity 255 mcg/dL (228-428); Triglycerides 98 mg/dL (<150); Unsaturated Iron Binding 205 ug/dL
[2023-07-18 13:14] LABS: Folate 8.3 ng/mL (> or = 4.0); Vitamin B12 520 pg/mL (200-900)
== END 2023-07-18 07:08 | disposition home or self-care (01) ==
LOC: HO.WFDLDS 07:07
PROVIDERS: Referring Provider Nurse Practitioner Family; Visit Provider Physician Assistant
DX: R47.01 Aphasia (principal); M05.9 Rheumatoid arthritis with rheumatoid factor, unspecified; Z79.899 Other long term (current) drug therapy; Z00.00 Encounter for general adult medical examination without abnormal findings; E66.01 Morbid (severe) obesity due to excess calories
CPT/HCPCS: 36415; 80053; 80061; 82607; 82746; 83540; 84443; 85025; 85652; 86140

== ENCOUNTER 2023-08-08 12:57 | Outpatient (AMB) | payer OTHER, SELFPAY ==
--- NOTE | 2023-08-08 13:17 | MHC.OFFVIS ---
Vital Signs 08/08/23 13:21 Height 5 ft 6 in Weight 248 lb 4 oz BMI 40.1 BP 106/78 Blood Pressure Location Rt brachial Position Sitting Respiration 14 Pulse 108 H Pulse Source Pulse Oximeter Temp 98.3 F Temp Source Oral Pulse Oximetry (%) 98 Oxygen Delivery Method Room Air Intake Visit Reasons: Sore throat Intake Note: Sore throat since friday, pt states she had a fever on friday and it hurts to swallow and eat. Allergies No Known Allergies Allergy (Verified 08/08/23 13:33) Is last menstrual period known: Yes Last menstrual period: 08/06/23 Do you need a note to return to daycare/school/sports/work: No HPI Comments Details: Here today w/ c/o sore throat, fever, trouble swallowing T max 100.3 No known exposure to strep Mild cough, runny nose Taking OTC cold medication w/ no relief PFSH Medical History (Updated 07/15/23 @ 13:51 by Dorothy Vidal PA-C) Carpal tunnel syndrome Plantar fasciitis Obesity, morbid, BMI 40.0-49.9 Rash, skin Psoriasis (a type of skin inflammation) Seropositive rheumatoid arthritis Surgical History (Updated 07/15/23 @ 13:40 by Nereyda Cardoza CMA) Hx of colonoscopy H/O esophagogastroduodenoscopy History of surgery History of carpal tunnel surgery Hx of tubal ligation H/O breast biopsy Hx of bilateral breast reduction surgery Family History (Updated 07/15/23 @ 13:21 by Nereyda Cardoza CMA) Mother No problems noted. Father No problems noted. 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 Current occupational exposures/hazards: No Cognitive needs: No Hearing needs: No Vision needs: No Female Reproductive History Menstrual Date of last menstrual period: 08/06/23 Review of Systems Const All systems reviewed & are unremarkable except as noted in HPI and below Physical Exam Vital Signs: Last Vital Signs Temp 98.3 F 08/08/23 13:21 Pulse 108 H 08/08/23 13:21 Resp 14 08/08/23 13:21 BP 106/78 08/08/23 13:21 Pulse Ox 98 08/08/23 13:21 Oxygen Delivery Method Room Air 08/08/23 13:21 BMI result Body Mass Index 40.1 Const Other: Awake alert NAD Sclera and conjunctiva clear bilat Nares with minimal cleared discharge bilat, turbinates within normal limits, no sinus tenderness with palpation bilat TM intact bilat with trace fluid behind TM MMM, pharynx diffuse erythema, exudative pharyngitis, uvula midline, shotty AC adenopathy bilat, managing secretions Mildly tachycardic, regular rhythm LS CTAB Assessment & Plan Assessment & Plan (1) Strep pharyngitis: Code(s): J02.0 - Streptococcal pharyngitis Plan: . Medications: New amoxicillin-pot clavulanate 875-125 mg 1 tab PO BID 7 days 14 tabs 0RF Patient Instructions: Good hand hygiene and respiratory etiquette can reduce the spread of all types of group A strep infection. Hand hygiene is especially important after coughing and sneezing and before preparing foods or eating. Good respiratory etiquette involves covering your cough or sneeze. Do not share food or drinks. Treating an infected person with an antibiotic for 12 hours or longer limits their ability to transmit the bacteria. Thus, people with group A strep pharyngitis should stay home from work, school, or daycare until: They are afebrile AND At least 12?24 hours after starting appropriate antibiotic therapy I also recommend changing toothbrush and washing bed linen in hot water 24 hours after starting antibiotics Advised to call prescriber of methotrexate to see if this should be held during her antibiotic therapy. Coding Level of Care Code Est Pt Level 3 (63753) Diagnoses Strep pharyngitis J02.0
[2023-08-08 13:21] VITALS: BP 106/78; PULSE 108; RESP 14; TEMP 36.8; O2SAT 98; BMI 40.1
== END 2023-08-08 15:19 | disposition home or self-care (01) ==
PROVIDERS: PCP Physician Assistant; Visit Provider Nurse Practitioner Family
DX: J02.0 Streptococcal pharyngitis (principal)
CPT/HCPCS: 99213

== ENCOUNTER 2023-11-12 11:38 | Outpatient (AMB) | payer OTHER, SELFPAY ==
--- NOTE | 2023-11-12 11:46 | MHC.OFFVIS ---
Vital Signs 11/12/23 11:50 Height 5 ft 6 in Weight 248 lb 10.903 oz BMI 40.1 BP 102/66 Blood Pressure Location Rt brachial Position Sitting Pulse 90 Pulse Source Pulse Oximeter Pulse Oximetry (%) 99 Oxygen Delivery Method Room Air Intake Visit Reasons: RA/ with possible PsO/CM Intake Note: Patient is here for RA today with follow up on labs. Allergies No Known Allergies Allergy (Verified 11/12/23 11:49) Medication List - Last Reconciled 11/12/23 by Messi Aguilera MD acetaminophen (Tylenol Extra Strength) 1,000 mg PO Q6H PRN amoxicillin-pot clavulanate 875-125 mg 1 tab PO BID 7 days Cimzia (certolizumab pegol) 200 mg subcut Q2W NS folic acid 1 mg PO DAILY methotrexate sodium 20 mg (8 x 2.5 mg) PO QWEEK norethindrone (contraceptive) (Lianne) 0.35 mg PO DAILY tirzepatide (Mounjaro) 2.5 mg (0.5 mL) subcut QWEEK 4 weeks tirzepatide (weight loss) (Zepbound) 2.5 mg (0.5 mL) subcut QWEEK 4 weeks HPI Comments Details: This is a 43-year-old female with seropositive RA who presents for follow-up. She remains on methotrexate 20 mg weekly and Cimzia 200 mg every other week. She states that she gets intermittent knee pain with activity such as going up and down the stairs. Otherwise has not had any swollen or painful joints. Doing well overall. No complaints today. Last visit Kassandra Goncalves suspected psoriasis rashes on her abdomen which resolved with clobetasol cream. They have not recurred [facility] Medical History (Updated 11/12/23 @ 12:22 by Messi Aguilera MD) Carpal tunnel syndrome Plantar fasciitis Obesity, morbid, BMI 40.0-49.9 Rash, skin Psoriasis (a type of skin inflammation) Seropositive rheumatoid arthritis Surgical History (Updated 07/15/23 @ 13:40 by Nereyda Cardoza CMA) Hx of colonoscopy H/O esophagogastroduodenoscopy History of surgery History of carpal tunnel surgery Hx of tubal ligation H/O breast biopsy Hx of bilateral breast reduction surgery Family History (Updated 07/15/23 @ 13:21 by Nereyda Cardoza CMA) Mother No problems noted. Father No problems noted. 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 Current occupational exposures/hazards: No Cognitive needs: No Hearing needs: No Vision needs: No Female Reproductive History Menstrual Date of last menstrual period: 08/06/23 Review of Systems [facility] Reports arthralgias, Denies joint swelling and Denies stiffness Physical Exam Const General: cooperative, healthy appearing and comfortable Nutritional Appearance: obese morbidly obese Orientation/consciousness: patient oriented x3 Limitations: no limitations HEENT Head: Yes normocephalic and Yes atraumatic Mouth: moist mucous membranes Resp Effort & Inspection: normal respiratory effort and able to speak in complete sentences Auscultation: clear to auscultation bilaterally Cardio Rate: regular rate Rhythm: regular rhythm Skin General skin exam: no rashes or lesions noted Neuro General: patient oriented x3 Extrem Other: No active synovitis No knee pain with flexion-extension bilaterally Normal nailfold capillaroscopy Assessment & Plan Assessment & Plan (1) Seropositive rheumatoid arthritis: Comment: ++RF+++CCP MTX 08/2019, Humira added December 2019 due to active disease. 06/03/2020 switch to Enbrel due to active disease, Enbrel was denied and patient was started on Cimzia MTX 08/2019-present Cimzia- May 2020-present effective Code(s): M05.9 - Rheumatoid arthritis with rheumatoid factor, unspecified Category: Medical Plan: This is a 43-year-old female with seropositive RA who presents for follow-up. This is her 1st visit with me. She remains on methotrexate 20 mg weekly, folic acid 1 mg daily and Cimzia 200 mg every other week. Doing well overall with no active synovitis Continue current meds Labs before next visit in 3 months (2) [facility]PC methotrexate user: Code(s): Z79.899 - Other skilled nursing (current) drug therapy Category: Medical Plan: Monitor safety labs. Patient has bilateral tubal ligation (3) Psoriasis (a type of skin inflammation): Code(s): L40.9 - Psoriasis, unspecified Category: Medical Plan: Suspected to have psoriasis on abdomen by Kassandra Goncalves last visit, this seems to have resolved with clobetasol cream without recurrence Plan I spent 30 minutes reviewing patient's chart, evaluating patient, ordering diagnostic workup, counseling patient and documenting in the chart Orders: Orders Erythrocyte Sedimentation Rate 3 Months M05.9 - Rheumatoid arthritis with rheumatoid factor, unspecified, Z79.899 - Other terminal block assembler (current) drug therapy Complete Blood Count Auto Diff 3 Months M05.9 - Rheumatoid arthritis with rheumatoid factor, unspecified, Z79.899 - Other skilled nursing (current) drug therapy Comprehensive Met. Panel 3 Months M05.9 - Rheumatoid arthritis with rheumatoid factor, unspecified, Z79.899 - Other terminal block assembler (current) drug therapy C Reactive Protein 3 Months M05.9 - Rheumatoid arthritis with rheumatoid factor, unspecified, Z79.899 - Other skilled nursing (current) drug therapy Hepatitis A,B,C Profile 3 Months Z11.59 - Encounter for screening for other viral diseases T Spot TB 3 Months Z11.7 - Encounter for testing for latent tuberculosis infection Coding Level of Care Code Est Pt Level 4 (12306) Diagnoses Seropositive rheumatoid arthritis M05.9 FPC methotrexate user Z79.899 Psoriasis (a type of skin inflammation) L40.9
[2023-11-12 11:50] VITALS: BP 102/66; PULSE 90; O2SAT 99; BMI 40.1
== END 2023-11-12 12:02 | disposition home or self-care (01) ==
PROVIDERS: PCP Physician Assistant; Visit Provider Student in an Organized Health Care Education/Training Program
DX: M05.79 Rheumatoid arthritis with rheumatoid factor of multiple sites without organ or systems involvement (principal); Z79.899 Other long term (current) drug therapy; L40.9 Psoriasis, unspecified
CPT/HCPCS: 99214

== ENCOUNTER → 2023-11-12 11:38 | Outpatient (BNVA) | payer OTHER, SELFPAY | PROVIDERS: PCP Physician Assistant; Visit Provider Student in an Organized Health Care Education/Training Program ==

== ENCOUNTER 2024-02-20 07:31 | Outpatient (REF) | payer OTHER, SELFPAY ==
[2024-02-20 10:57] LABS: MANUAL DIFF FLAG NO
[2024-02-20 11:04] LABS: Basophils Absolute Auto 0.1 X10*3/uL (0.0-0.2); Basophils Percent Auto 0.8 % (0-2); Eosinophils Absolute Auto 0.4 X10*3/uL (0.0-0.4); Eosinophils Percent Auto 6.7 % (0-4); Hemoglobin 12.3 g/dl (12.0-16.0); Imm Gran Abs Auto 0.02 X10*3/uL (0.00-0.03); Imm Gran Pct Auto 0.3 % (0.0-0.4); Lymphocytes Absolute Auto 2.1 X10*3/uL (1.2-4.9); Lymphocytes Percent Auto 35.4 % (20-40); Mean Corpuscular HGB Conc 34.2 g/dl (31.0-35.0); Mean Corpuscular Hemoglobin 30.1 pg (27.0-33.0); Mean Platelet Volume 10.2 fL (9.4-12.3); Monocytes Absolute Auto 0.5 X10*3/uL (0.1-1.2); Monocytes Percent Auto 7.7 % (2-11); Neutrophils Absolute Auto 2.9 x10*3/uL (2.0-8.3); Neutrophils Percent Auto 49.1 % (45-73); Platelet Count 399 X10*3/uL (160-400); Red Blood Count 4.09 X10*6/uL (4.20-5.50); Red Cell Distribution Width 14.1 % (11.0-16.0); White Blood Count 5.9 X10*3/uL (4.8-10.8)
[2024-02-20 11:28] LABS: Alanine Aminotransferase 35 U/L (0-31); Albumin Level 4.2 g/dL (3.5-5.0); Alkaline Phosphatase 47 U/L (39-117); Anion Gap 10 (12-20); Aspartate Amino Transferase 26 U/L (5-31); Bilirubin Total 0.5 mg/dL (0.0-1.0); Blood Urea Nitrogen 15 mg/dL (9-16); C Reactive Protein 0.49 mg/dL (< or = 0.50); Calcium 9.1 mg/dL (8.4-10.2); Carbon Dioxide 24 mmol/L (22-29); Chloride 110 mmol/L (96-108); Estimated Glomerular Filt Rate > 60; Glucose Random 91 mg/dL (60-115); Potassium 3.9 mmol/L (3.3-5.1); Sodium 140 mmol/L (135-145); Total Protein 7.6 g/dL (6.5-8.0)
[2024-02-20 11:39] LABS: HBS Num1 446.51 mIU/mL (0-7.99); Hepatitis A Antibody IgM 0.18 Index (0-0.79); Hepatitis B Core Antibody Nonreactive (Nonreactive); Hepatitis B Surface Antigen Negative (Negative); ~Hepatitis A Antibody IgM Nonreactive (Nonreactive); ~Hepatitis B Surface Antibody REACTIVE (Nonreactive); ~Hepatitis C Antibody Nonreactive (Nonreactive)
[2024-02-20 11:44] LABS: Erythrocyte Sedimentation Rate 20 MM/HR (0-20)
[2024-02-25 16:02] LABS: TS Negative Control PASSED; TS Panel A 0; TS Panel B 0
[2024-02-25 16:03] LABS: TSpotTB NEGATIVE
[2024-02-25 16:04] LABS: TS Positive Control PASSED
== END 2024-02-20 07:32 | disposition home or self-care (01) ==
LOC: HO.WFDLDS 07:31
PROVIDERS: Visit Provider Student in an Organized Health Care Education/Training Program
DX: M05.9 Rheumatoid arthritis with rheumatoid factor, unspecified (principal); Z79.899 Other long term (current) drug therapy; Z11.59 Encounter for screening for other viral diseases; Z11.7 Encounter for testing for latent tuberculosis infection
CPT/HCPCS: 36415; 80053; 85025; 85652; 86140; 86481; 86704; 86706; 86709; 86803; 87340

== ENCOUNTER 2024-03-08 08:57 | Outpatient (AMB) | payer OTHER, SELFPAY ==
--- NOTE | 2024-03-08 09:04 | MHC.OFFVIS ---
Vital Signs 03/08/24 09:06 Height 5 ft 6 in Weight 242 lb 8.136 oz BMI 39.1 BP 102/70 Blood Pressure Location Rt brachial Position Sitting Respiration 16 Pulse 86 Pulse Source Pulse Oximeter Pulse Oximetry (%) 97 Oxygen Delivery Method Room Air Intake Visit Reasons: RA Intake Note: Patient presents for RA. Allergies No Known Allergies Allergy (Verified 03/08/24 09:07) HPI Comments Details: This is a 43-year-old female with seropositive RA who presents for follow-up. She remains on methotrexate 20 mg weekly and Cimzia 200 mg every other week. About 2 weeks ago she was diagnosed with pneumonia. She went to the hospital, she was diagnosed with pneumonia and discharged on antibiotics. She was prescribed doxycycline. Her symptoms have significantly improved but she continues to have a lingering cough. [facility] Medical History Carpal tunnel syndrome Plantar fasciitis Obesity, morbid, BMI 40.0-49.9 Rash, skin Psoriasis (a type of skin inflammation) Seropositive rheumatoid arthritis Surgical History Hx of colonoscopy H/O esophagogastroduodenoscopy History of surgery History of carpal tunnel surgery Hx of tubal ligation H/O breast biopsy Hx of bilateral breast reduction surgery Family History Mother No problems noted. Father No problems noted. 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 Current occupational exposures/hazards: No Cognitive needs: No Hearing needs: No Vision needs: No Review of Systems Musc Denies joint swelling and Denies stiffness Physical Exam Vital Signs: Last Vital Signs Pulse 86 03/08/24 09:06 Resp 16 03/08/24 09:06 BP 102/70 03/08/24 09:06 Pulse Ox 97 03/08/24 09:06 Oxygen Delivery Method Room Air 03/08/24 09:06 BMI result Body Mass Index 39.1 Const General: cooperative, healthy appearing and comfortable Nutritional Appearance: obese morbidly obese Orientation/consciousness: patient oriented x3 Limitations: no limitations HEENT Head: Yes normocephalic and Yes atraumatic Mouth: moist mucous membranes Resp Effort & Inspection: normal respiratory effort and able to speak in complete sentences Auscultation: clear to auscultation bilaterally Cardio Rate: regular rate Rhythm: regular rhythm Skin General skin exam: no rashes or lesions noted Neuro General: patient oriented x3 Extrem Other: No active synovitis No knee pain with flexion-extension bilaterally Normal nailfold capillaroscopy Assessment & Plan Assessment & Plan (1) Seropositive rheumatoid arthritis: Comment: ++RF+++CCP MTX 08/2019, Humira added December 2019 due to active disease. 06/03/2020 switch to Enbrel due to active disease, Enbrel was denied and patient was started on Cimzia MTX 08/2019-present Cimzia- May 2020-present effective Code(s): M05.9 - Rheumatoid arthritis with rheumatoid factor, unspecified Category: Medical Plan: This is a 43-year-old female with seropositive RA who presents for follow-up. Doing well overall on methotrexate on 20 mg weekly and Cimzia 200 mg every other week. There is no active synovitis on exam. Has been stable on both meds for quite some time. Her labs have shown fluctuating transaminitis. 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 Patient has bilateral tubal ligation Plan I spent 25 minutes reviewing patient's chart, evaluating patient, ordering diagnostic workup, counseling patient and documenting in the chart Orders: Orders Complete Blood Count Auto Diff 4 Months M05.9 - Rheumatoid arthritis with rheumatoid factor, unspecified Comprehensive Met. Panel 4 Months M05.9 - Rheumatoid arthritis with rheumatoid factor, unspecified Erythrocyte Sedimentation Rate 4 Months M05.9 - Rheumatoid arthritis with rheumatoid factor, unspecified C Reactive Protein 4 Months M05.9 - Rheumatoid arthritis with rheumatoid factor, unspecified Medications: Changed From methotrexate sodium 20 mg (8 x 2.5 mg) PO QWEEK 32 tabs 2RF M05.9 - Rheumatoid arthritis with rheumatoid factor, unspecified To methotrexate sodium 15 mg (6 x 2.5 mg) PO QWEEK 96 tabs 0RF M05.9 - Rheumatoid arthritis with rheumatoid factor, unspecified Coding Level of Care Code Est Pt Level 4 (78693) Diagnoses Seropositive rheumatoid arthritis M05.9 [facility] methotrexate user Z79.899
[2024-03-08 09:06] VITALS: BP 102/70; PULSE 86; RESP 16; O2SAT 97; BMI 39.1
== END 2024-03-08 09:36 | disposition home or self-care (01) ==
PROVIDERS: PCP Physician Assistant; Visit Provider Student in an Organized Health Care Education/Training Program
DX: M05.79 Rheumatoid arthritis with rheumatoid factor of multiple sites without organ or systems involvement (principal); Z79.631 Long term (current) use of antimetabolite agent
CPT/HCPCS: 99214

== ENCOUNTER → 2024-03-08 08:57 | Outpatient (BNVA) | payer OTHER, SELFPAY | PROVIDERS: PCP Physician Assistant; Visit Provider Student in an Organized Health Care Education/Training Program ==

== ENCOUNTER 2024-07-05 07:28 | Outpatient (REF) | payer OTHER, SELFPAY ==
[2024-07-05 10:55] LABS: MANUAL DIFF FLAG NO
[2024-07-05 10:58] LABS: Basophils Percent Auto 0.5 % (0-2); Eosinophils Absolute Auto 0.1 X10*3/uL (0.0-0.4); Eosinophils Percent Auto 2.1 % (0-4); Hematocrit 36.5 % (37.0-47.0); Hemoglobin 12.6 g/dl (12.0-16.0); Imm Gran Abs Auto 0.01 X10*3/uL (0.00-0.03); Imm Gran Pct Auto 0.2 % (0.0-0.4); Lymphocytes Absolute Auto 1.9 X10*3/uL (1.2-4.9); Lymphocytes Percent Auto 32.5 % (20-40); Mean Corpuscular HGB Conc 34.5 g/dl (31.0-35.0); Mean Corpuscular Hemoglobin 30.7 pg (27.0-33.0); Mean Corpuscular Volume 88.8 fL (80.0-98.0); Mean Platelet Volume 11.6 fL (9.4-12.3); Monocytes Absolute Auto 0.5 X10*3/uL (0.1-1.2); Monocytes Percent Auto 8.1 % (2-11); Neutrophils Absolute Auto 3.3 x10*3/uL (2.0-8.3); Neutrophils Percent Auto 56.6 % (45-73); Platelet Count 400 X10*3/uL (160-400); Red Blood Count 4.11 X10*6/uL (4.20-5.50); Red Cell Distribution Width 14.5 % (11.0-16.0); White Blood Count 5.8 X10*3/uL (4.8-10.8)
[2024-07-05 11:10] LABS: Alanine Aminotransferase 15 U/L (0-31); Albumin Level 4.2 g/dL (3.5-5.0); Alkaline Phosphatase 37 U/L (39-117); Anion Gap 11 (12-20); Aspartate Amino Transferase 18 U/L (5-31); Bilirubin Total 0.5 mg/dL (0.0-1.0); Blood Urea Nitrogen 12 mg/dL (9-16); C Reactive Protein 0.23 mg/dL (< or = 0.50); Calcium 8.7 mg/dL (8.4-10.2); Carbon Dioxide 21 mmol/L (22-29); Chloride 111 mmol/L (96-108); Estimated Glomerular Filt Rate > 60; Glucose Random 90 mg/dL (60-115); Potassium 3.7 mmol/L (3.3-5.1); Sodium 139 mmol/L (135-145); Total Protein 7.2 g/dL (6.5-8.0)
[2024-07-05 11:38] LABS: Erythrocyte Sedimentation Rate 13 MM/HR (0-20)
== END 2024-07-05 07:29 | disposition home or self-care (01) ==
LOC: HO.WFDLDS 07:28
PROVIDERS: Referring Provider Physician Assistant; Visit Provider Student in an Organized Health Care Education/Training Program
DX: Z00.00 Encounter for general adult medical examination without abnormal findings (principal); E66.01 Morbid (severe) obesity due to excess calories; M05.9 Rheumatoid arthritis with rheumatoid factor, unspecified
CPT/HCPCS: 36415; 80053; 85025; 85652; 86140

== ENCOUNTER 2024-07-08 15:36 | Outpatient (AMB) | payer OTHER, SELFPAY ==
[2024-07-08 15:39] VITALS: BP 120/70; PULSE 95; O2SAT 98; BMI 34.4
--- NOTE | 2024-07-08 15:39 | A.OFFVIS_ITS ---
Vital Signs 07/08/24 15:39 Height 5 ft 6 in Weight 212 lb 15.465 oz BMI 34.4 BP 120/70 Blood Pressure Location Lt brachial Position Sitting Pulse 95 Pulse Source Pulse Oximeter Pulse Oximetry (%) 98 Oxygen Delivery Method Room Air Intake Visit Reasons: RA Intake Note: Patient last seen by Doctor Messi Aguilera on 03/08/24. Presents today for RA follow up and test results. Allergies No Known Allergies Allergy (Verified 07/08/24 15:43) Medication List - Last Reconciled 07/08/24 by Teetee Ocampo MD acetaminophen (Tylenol Extra Strength) 1,000 mg PO Q6H PRN Cimzia (certolizumab pegol) 200 mg subcut Q2W NS folic acid 1 mg PO DAILY methotrexate sodium 15 mg (6 x 2.5 mg) PO QWEEK norethindrone (contraceptive) (Lianne) 0.35 mg PO DAILY tirzepatide (weight loss) (Zepbound) 5 mg (0.5 mL) subcut QWEEK HPI Comments Details: Patient is a 43-year-old female with psoriasis and seropositive rheumatoid arthritis here today for follow up Interval History: Patient last seen 03/08/[address] Aguilera. At that time she was following up for seropositive rheumatoid arthritis on methotrexate 20 mg weekly and Cimzia 200 mg every other week. She was holding her medications in the setting of a recent diagnosis of pneumonia. 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 No AM stiffness Rheumatologic History: ++RF+++CCP MTX 08/2019, Humira added December 2019 due to active disease. 06/03/2020 switch to Enbrel due to active disease, Enbrel was denied and patient was started on Cimzia MTX 08/2019-present Cimzia- May 2020-present effective Initial history: Patient has a history of mild right side carpal tunnel based on EMG done in May 2017. She was evaluated by neurologist at that time and thoughts to possibly have fibromyalgia as well. Pt reports diffuse arthralgia that has been present for years and slowly worsening. Pain occurs daily, worse at morning and night, feels better during the day. Pain is unchanged with activity. Pain is worse with cold weather. Diffuse morning stiffness that can last up to 2 hours. New onset swelling in her fingers and feet for the last 2 weeks. Had a cold approx 2 weeks ago that lasted a few days and then resolved. No GI symptoms or fever. Pt denies Raynauds, photosensitivity, oral or nasal ulcers, Sicca symptoms, fevers, alopecia. No history of miscarriage. No family history of RA, SLE or psoriasis. Current Rheumatology Medication(s): Cimzia 200 mg every other week sc Methotrexate 15 mg weekly Folic acid 1 mg daily [facility] Medical History Carpal tunnel syndrome Plantar fasciitis Obesity, morbid, BMI 40.0-49.9 Rash, skin Psoriasis (a type of skin inflammation) Seropositive rheumatoid arthritis Surgical History Hx of colonoscopy H/O esophagogastroduodenoscopy History of surgery History of carpal tunnel surgery Hx of tubal ligation H/O breast biopsy Hx of bilateral breast reduction surgery Family History Mother No problems noted. Father No problems noted. 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 Current occupational exposures/hazards: No Cognitive needs: No Hearing needs: No Vision needs: No Review of Systems Const Details: Review of Systems Constitutional: Denies fever, chills, weight loss ENT: Denies vision changes, eye pain or eye redness, dental caries, dry mouth GI: Denies nausea, vomiting, diarrhea, abdominal pain, change in BM Pulm: Denies SOB, RODARTE, hemoptysis, wheezing Cards: Denies chest pain, palpitations Skin: Denies Raynaud's, rash, nail changes, photosensitivity, SALES AND SERVICE ENGINEER: Denies headaches, weakness, paresthesias, recurrent falls MSK: as per HPI All other systems reviewed and are unremarkable except noted above Physical Exam Vital Signs: Last Vital Signs Pulse 95 07/08/24 15:39 BP 120/70 07/08/24 15:39 Pulse Ox 98 07/08/24 15:39 Oxygen Delivery Method Room Air 07/08/24 15:39 BMI result Body Mass Index 34.4 Vital signs reviewed Physical Examination CONSTITUITIONAL Patient alert and cooperative. Well appearing and in no apparent painful distress HEENT Conjunctiva and sclera clear. ?Pupils equal round and reactive to light. ?No lymphadenopathy. ? CHEST/RESPIRATORY SYSTEM Normal respiratory effort and able to speak in complete sentences. ?Clear to auscultation bilaterally. ?No crackles, rales, rhonchi, wheezes heard. CARDIAC SYSTEM Regular rate and rhythm. ?S1 and S2 heard no murmurs. ?Radial pulses intact bilaterally MSK Hands: ?Able to make a fist. No synovitis noted to the MCPs, PIPs or DIPs. ?No tenderness to palpation of these joints. No deformities noted. ? Wrists: ?Full range of motion at the wrists without pain. ?No tenderness to palpation or synovitis noted to the wrists. Elbows: Full range of motion without pain. No tenderness, weakness, swelling, increased warmth or erythema. Shoulders: Full range of active range of motion without pain. No tenderness, weakness, swelling, increased warmth or erythema. Hips: Full range of motion without pain. Hip bursa: No tenderness to palpation Knees: ?Full range of motion. ?No tenderness, swelling, increased warmth or erythema.?No effusion or crepitations Ankles: Full range of motion. ?No tenderness, swelling, increased warmth or erythema.? Feet: ?Negative squeeze test. ?No tenderness to palpation or swelling of the MTPs. Tender points:?No tenderness to palpation of the bilateral trapezius, supraspinatus, greater trochanters, anterior costochondral junctions, bilateral gluteal areas, bilateral suboccipital muscle insertions SKIN Skin intact without rashes. Results Reviewed Results Reviewed: Laboratory Tests 07/05/24 07:30 WBC 5.8 RBC 4.11 L Hgb 12.6 Hct 36.5 L Plt Count 400 ESR 13 Sodium 139 Potassium 3.7 Chloride 111 H Carbon Dioxide 21 L BUN 12 Creatinine 0.75 AST 18 ALT 15 Alkaline Phosphatase 37 L C-Reactive Protein 0.23 Immunology labs 08/12/19 12:35 Rheumatoid Factor 52.8 H Cycl Citrul Peptide IgG >250 H ABIGAIL Screen Negative Infectious serologies 02/20/24 07:33 Hepatitis A IgM Ab Nonreactive Hep Bs Antigen Negative Hep Bs Antibody REACTIVE Hep B Core Total Ab Nonreactive Hepatitis C Ab (EIA) Nonreactive TB Test (T-Spot) Com NEGATIVE Assessment & Plan Assessment & Plan (1) Seropositive rheumatoid arthritis: Comment: ++RF+++CCP MTX 08/2019, Humira added December 2019 due to active disease. 06/03/2020 switch to Enbrel due to active disease, Enbrel was denied and patient was started on Cimzia MTX 08/2019-present Cimzia- May 2020-present effective Code(s): M05.9 - Rheumatoid arthritis with rheumatoid factor, unspecified Category: Medical Plan: #Seropositive RA Patient is a 43-year-old female with seropositive rheumatoid arthritis here today for follow up. Currently in remission. Recommended using topical diclofenac on her knees 4 times a day when she knows she is going to be on her feet a lot. Plan - Cimzia 200mg SC every 2 weeks - Methotrexate 15mg PO weekly - Topical diclofenac 1% on bilateral knees 4 times a day on the days she is going to be on her feet alot - Folic acid 1mg daily - RTC 4 months - labs before follow up: CBC, CMP, ESR, CRP (2) longterm methotrexate user: Code(s): Z79.899 - Other intermodal dispatcher (current) drug therapy Category: Medical Plan: #Long-term Current Use of Methotrexate Discussed with patient the benefits and risks of methotrexate for managing their rheumatic condition Benefits include reduced pain, reduced mortality, maintenance of remission and reduction of flares Risks include oral ulcers, photosensitivity, hepatotoxicity, hematologic toxicity, pneumonitis, flu-like symptoms (especially day after administration), nodulosis, lymphomas ? Limit alcohol and avoid Bactrim ? Monitoring: ?CBC, BMP, LFTs every 3-4 months and hepatitis serologies as needed ? Methotrexate is teratogenic. ?If planning need to discontinue 3 months prior to conception. Had a BSO. No fertility desires (3) Encounter for monitoring certolizumab therapy: Code(s): Z51.81 - Encounter for therapeutic drug level monitoring; Z79.620 - longterm (current) use of immunosuppressive biologic Plan: #Long-term Use of TNF Inhibitors: Cimzia Discussed with the patient the benefits and risks of TNF inhibitors for the management of the rheumatic condition Benefits include reduce pain, maintenance of remission and reduction of flares as well as ?progression of the disease Risks include injection sites/infusion reactions, serious infections (such as bacterial infections, opportunistic infections), malignancy, delaminating syndromes, autoimmune phenomena, CHF exacerbations, palmar plantar psoriasis and cytopenias Recommended rotating injection sites, and holding medication during and for up to 1 week after resolution of a febrile illness or open skin wound Plan I spent 35 minutes reviewing the record and labs, taking a history, examining the patient, discussing the treatment plan, ordering diagnostic work up and documenting in the medical record Orders: Orders Complete Blood Count Auto Diff 4 Months M05.9 - Rheumatoid arthritis with rheumatoid factor, unspecified C Reactive Protein 4 Months M05.9 - Rheumatoid arthritis with rheumatoid factor, unspecified Erythrocyte Sedimentation Rate 4 Months M05.9 - Rheumatoid arthritis with rheumatoid factor, unspecified Comprehensive Met. Panel 4 Months M05.9 - Rheumatoid arthritis with rheumatoid factor, unspecified Medications: Changed From methotrexate sodium 15 mg (6 x 2.5 mg) PO QWEEK 96 tabs 0RF M05.9 - Rheumatoid arthritis with rheumatoid factor, unspecified To methotrexate sodium 15 mg (6 x 2.5 mg) PO QWEEK 90 days 78 tabs 1RF M05.9 - Rheumatoid arthritis with rheumatoid factor, unspecified Refilled folic acid 1 mg PO DAILY 90 caps 1RF M05.9 - Rheumatoid arthritis with rheumatoid factor, unspecified Coding Level of Care Code Est Pt Level 4 (49726) Complex EM visit Add On G2211 Diagnoses Seropositive rheumatoid arthritis 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
--- OUTSIDE RECORDS SUMMARY | 2024-07-08 18:15 | XMS_ITS | Clinical Summary ---
Author Organization [facility] ity Address [address] [place] [address] Care Team Providers Care Seam Rubber Name Role Phone Unavailable Primary Care Provider Unavailabl e Social History Tobacco Use Types Packs/Day Years Used Date Smoking Tobacco: Never Assessed Comments Unknown Sex and Gender Information Value Date Recorded Sex Assigned at Not on file Legal Sex Female 10:32 PM EST Gender Identity Not on file Sexual Orientation Not on file Plan of Treatment Health Maintenance Due Date Last Done Comments Breast Cancer Screening 1982 DTaP,Tdap,and Td Vaccines (1 - Tdap) 2001 Hepatitis B Vaccines (1 of 3 - 19+ 3-dose series) 2001 Cervical Cancer Screening: P ap Smear 09/19/2003 COVID-19 Vaccine (2023-2 5 season) 2023 Influenza Vaccine (Season Ended) 2024 HIB Vaccines Aged Out No longer eligi ble based on patient's age to complete this topic HPV Vaccines Aged Out No longer eligi ble based on patient's age to complete this topic Hepatitis A Vaccines Aged Out No long er eligible based on patient's age to complete this topic IPV Vaccines Aged Out No longer eligi ble based on patient's age to complete this topic MMR Vaccines Aged Out No longer eligi ble based on patient's age to complete this topic Meningococcal ACWY Vaccine Aged Out N o longer eligible based on patient's age to complete this topic Meningococcal B Vaccine Aged Out No l onger eligible based on patient's age to complete this topic Pneumococcal Vaccine: Pediat rics (0 to 5 Years) and At-Risk Patients (6 to 64 Years) Aged Out No longer eligible b ased on patient's age to complete this topic RSV Immunization Patients Un ifeanyi 20 months Aged Out No longer eligible b ased on patient's age to complete this topic Varicella Vaccines Aged Out No longer eligible based on patient's age to complete this topic
== END 2024-07-08 16:13 | disposition home or self-care (01) ==
LOC: HO.RHE 15:37
PROVIDERS: PCP Physician Assistant; Visit Provider Student in an Organized Health Care Education/Training Program
DX: M05.79 Rheumatoid arthritis with rheumatoid factor of multiple sites without organ or systems involvement (principal); Z79.899 Other long term (current) drug therapy; Z51.81 Encounter for therapeutic drug level monitoring; Z79.620 Long term (current) use of immunosuppressive biologic
CPT/HCPCS: 99214; G2211

== ENCOUNTER → 2024-07-08 15:36 | Outpatient (BNVA) | payer OTHER, SELFPAY | PROVIDERS: PCP Physician Assistant; Visit Provider Student in an Organized Health Care Education/Training Program ==

== ENCOUNTER 2024-08-12 14:22 | Outpatient (AMB) | payer OTHER, SELFPAY ==
--- NOTE | 2024-08-12 14:30 | A.OFFPC_ITS ---
Vital Signs 08/12/24 14:31 Height 5 ft 6 in Weight 209 lb BMI 33.7 BP 114/78 Blood Pressure Location Rt brachial Position Sitting Respiration 12 Pulse 102 H Pulse Source Pulse Oximeter Pulse Oximetry (%) 99 Oxygen Delivery Method Room Air Intake Visit Reasons: Annual PE Exam Intake Note: Physical Oysterman Required: No Allergies No Known Allergies Allergy (Verified 08/12/24 14:30) Medication List - Last Reconciled 08/12/24 by Dorothy Vidal PA-C acetaminophen (Tylenol Extra Strength) 1,000 mg PO Q6H PRN Cimzia (certolizumab pegol) 200 mg subcut Q2W NS folic acid 1 mg PO DAILY methotrexate sodium 15 mg (6 x 2.5 mg) PO QWEEK 90 days norethindrone (contraceptive) (Lianne) 0.35 mg PO DAILY tirzepatide (weight loss) (Zepbound) 7.5 mg (0.5 mL) subcut QWEEK Tobacco use date assessed: 07/15/23 Dental Screening Dental Screen Date: 07/15/23 HPI Annual PE Exam HPI Details Patient is a 43-year-old female with a significant past medical history of psoriasis, rheumatoid arthritis, long-term methotrexate use presenting today for a physical exam. General: She is currently on Zepbound 7.5 mg weekly for weight loss. She states she has lost 36 lbs. She is eating very healthy now. She has tried intermittent fasting, dieting, calorie counting. She has a hard time exercising because she has RA. She is paying out of pocket for this and will let me know if she wants me to send it to [facility]. Psych: We reivewed the phq9 and anxiety scores. She states she is stressed about her weight and thinks she feels tired because of the obesity. She states losing weight would help her mental health. CV: Blood pressure today in the office is 114/78. No chest pain, shortness of breath or palpitations. Musculoskeletal: Following with [facility] rheumatology. She remains on methotrexate 20 mg weekly, folic acid 1 mg daily, and 200 mg Cimzia injections every 2 weeks. She reports doing well on this regiment with minimal joint symptoms. Derm: Follows with [facility] for psoriasis and is well controlled with clobetasol prn Mammogram: 01/2024-utd - follows with [facility] Pap: follows annually saw them 05/11-WNL- follows with [facility] Colonoscopy: 05/02/2022 -hyperplastic polyp sigmoid colon. due in 2027 Eye: goes every 6 months Dental: goes q 6 months COUNT INCLUDES THE [facility] Medical History (Updated 08/12/24 @ 15:04 by Dorothy Viadl PA-C) Carpal tunnel syndrome Plantar fasciitis Obesity, morbid, BMI 40.0-49.9 Rash, skin Psoriasis (a type of skin inflammation) Seropositive rheumatoid arthritis Surgical History Hx of colonoscopy H/O esophagogastroduodenoscopy History of surgery History of carpal tunnel surgery Hx of tubal ligation H/O breast biopsy Hx of bilateral breast reduction surgery Family History Mother No problems noted. Father No problems noted. 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 1. Little interest or pleasure in doing things: not at all 2. Feeling down, depressed, or hopeless: not at all 3. Trouble falling or staying asleep, or sleeping too much: several days 4. Feeling tired or having little energy: several days 5. Poor appetite or overeating: not at all 6. Feeling bad about yourself - or that you are a failure or have let yourself or your family down: several days 7. Trouble concentrating on things, such as reading the newspaper or watching television: not at all 8. Moving or speaking so slowly that other people could have noticed. Or the opposite - being so fidgety or restless that you have been moving around a lot more than usual: not at all 9. Thoughts that you would be better off or of hurting yourself in some way: not at all Total score: 3 Depression Screening Interpretation: Negative Depression Screening Done: Yes 99822 - PHQ-9 Billing: Yes Source: Developed by Drs. Maciel Michele, Aimee Holt, Jossue Hoskins and colleagues, with an educational linda from [employer]. Thrive Questionnaire Date Thrive assessed: 07/15/23 I am a: Patient What is your living situation today?: I have a steady place to live Within the past 12 months, did the food you bought not last and you didn't have the money to get more?: Never true Within the past 12 months, did you worry whether your food would run out before you got money to buy more?: Never true Do you have trouble paying for medicines?: No Do you have trouble getting transportation to medical appointments?: No Do you have trouble paying your heating and electricity bill?: No Do you have trouble taking care of your child, family member or friend?: No Do you have trouble with day-to-day activities such as bathing, preparing meals, shopping, managing finances, etc.?: No Are you currently unemployed and looking for a job?: No Are you interested in more education?: No Please select the resources that you would like help with: None Currently or been in a relationship where the following occur: No concerns reported THRIVE Score: 0 AUDIT C Alcohol Use Questionnaire (AUDIT-C) 1. How often do you have a drink containing alcohol?: Never 2. How many drinks containing alcohol do you have on a typical day when you are drinking?: 1 or 2 3. How often do you have six or more drinks on one occasion?: Never Total Score: 0 LJ-7 AMB Questionnaire LJ-7 Date LJ - 7 assessed: 07/15/23 Feeling nervous, anxious, or on edge: 2 = More than half the days Not being able to stop or control worryin = Several days Worrying too much about different things: 1 = Several days Trouble relaxin = Nearly every day Being so restless that it is hard to sit still: 1 = Several days Becoming easily annoyed or irritable: 1 = Several days Feeling afraid as if something awful might happen: 1 = Several days Total LJ-7 score (0-4 normal; 5-9 mild; 10-14 moderate; 15-21 severe): 10 Source: Developed by Drs. Maciel Michele, Aimee Holt, Jossue Hoskins and colleagues, with an educational linda from [employer]. LJ-7 Assessment Billing LJ-7 Assessment Tool: LJ-7 Assessment 72673 Physical exam (Primary Care) Vital Signs: Last Vital Signs Pulse 102 H 08/12/24 14:31 Resp 12 08/12/24 14:31 BP 114/78 08/12/24 14:31 Pulse Ox 99 08/12/24 14:31 Oxygen Delivery Method Room Air 08/12/24 14:31 BMI result Body Mass Index 33.7 Tobacco/Smoking Status: Tobacco use Status Tobacco use date assessed 07/15/23 08/12/24 14:34 Patient Tobacco Use Status Never used Tobacco 08/12/24 14:34 e-Cigarette/Vaping Use Never Used 08/12/24 14:34 PHQ-9: PHQ-9 Score PHQ-9: Total score 3 08/12/24 14:34 Depression Screening Interpretation: Negative Thrive Assessment: Date of Thrive Assessment Date Thrive assessed 07/15/23 08/12/24 14:34 Currently or been in a relationship where the following occur: No concerns reported Const Orientation/consciousness: patient oriented x3 HENMT Ears: hearing grossly normal bilaterally and TM's normal bilaterally General nose exam: No nasal polyps present Face and sinus: Yes sinuses nontender Mouth: Normal oral and palatal mucosa present Eyes Pupils: Equal, round and reactive pupils present EOM: EOMs intact bilaterally Neck Neck: Yes full ROM and Yes no lymphadenopathy Thyroid: Thyroid normal Chest Chest palpation & inspection: normal inspection of the chest Resp Auscultation: clear to auscultation bilaterally Cardio Rate: regular rate Rhythm: regular rhythm Heart sounds: S1 normal heart sound present and S2 normal heart sound present Peripheral pulses: Peripheral pulses 2+ throughout GI Other: Soft, nontender Auscultation: normal bowel sounds Rectal Exam - Female: deferred General: Yes no CVA tenderness Back/Spine/Pelvis Other: Nontender Back: no CVA tenderness Skin General skin exam: no rashes or lesions noted Neuro General: patient oriented x3, gait normal, CN's II-XI intact bilaterally and deep tendon reflexes 2+ bilaterally Cranial nerves: Yes Equal, round and reactive pupils present Motor exam (neuro): 5/5 motor strength present throughout Sensory Exam: double simultaneous stimulation for sensation normal Coordination: fcypje-br-[id number] test normal and Romberg test negative Extrem General: Yes normal to inspection and Yes full ROM Psych Affect: normal affect Attitude: cooperative Thought process: Normal thought process present Thought content: Normal thought content present Insight: Good insight present (Psych) Judgement: Good judgement present (Psych) Results Reviewed Results Reviewed: Laboratory Tests 07/18/23 07/05/24 07:10 07:30 WBC 5.8 RBC 4.11 L Hgb 12.6 Hct 36.5 L Plt Count 400 Sodium 139 Potassium 3.7 Chloride 111 H BUN 12 Creatinine 0.75 Estimated GFR > 60 Random Glucose 90 Calcium 8.7 Triglycerides 98 Cholesterol 188 LDL Cholesterol, Calc 121 H HDL Cholesterol 48 TSH 1.76 Coding Level of Care Code Est Pt Prev Care 40-64y(58837) Diagnoses Routine general medical examination at a health care facility Z00.00 Seropositive rheumatoid arthritis M05.9 Obesity (BMI 30.0-34.9) E66.811 Additional Codes PHQ-9 - 58335 - PHQ-9 Billing: Yes ([id number]) LJ-7 Assessment Billing - LJ-7 Assessment Tool: LJ-7 Assessment [id number] ([id number]) Assessment & Plan Assessment & Plan (1) Routine general medical examination at a health care facility: Code(s): Z00.00 - Encounter for general adult medical examination without abnormal findings Category: Medical Plan: reviewed labs ordered (2) Seropositive rheumatoid arthritis: Comment: ++RF+++CCP MTX 08/2019, Humira added December 2019 due to active disease. 06/03/2020 switch to Enbrel due to active disease, Enbrel was denied and patient was started on Cimzia MTX 08/2019-present Cimzia- May 2020-present effective Code(s): M05.9 - Rheumatoid arthritis with rheumatoid factor, unspecified Category: Medical Plan: following with rheum. well controlled (3) Obesity (BMI 30.0-34.9): Code(s): E66.811 - Obesity, class 1 Category: Medical Plan: increase zepbound to 10 mg weekly Orders: Orders Lipid Panel Today E66.01 - Morbid (severe) obesity due to excess calories, M05.9 - Rheumatoid arthritis with rheumatoid factor, unspecified, Z00.00 - Encounter for general adult medical examination without abnormal findings, Z13.220 - Encounter for screening for lipoid disorders Medications: New tirzepatide (weight loss) (Zepbound) 10 mg (0.5 mL) subcut QWEEK 2 mL 4RF Discontinued tirzepatide (weight loss) (Zepbound) Discontinued Reason: Doctor's Order 7.5 mg (0.5 mL) subcut QWEEK 2 mL 4RF
--- OUTSIDE RECORDS SUMMARY | 2024-08-12 14:30 | XMS_ITS | Clinical Summary ---
Author Organization [facility] ity Address [address] [place] [address] Care Team Providers Care Ore Sampler Name Role Phone Unavailable Primary Care Provider [...]
[2024-08-12 14:31] VITALS: BP 114/78; PULSE 102; RESP 12; O2SAT 99; BMI 33.7
== END 2024-08-12 17:04 | disposition home or self-care (01) ==
LOC: HO.HMCFM 14:23
PROVIDERS: PCP Physician Assistant; Visit Provider Physician Assistant
DX: Z00.00 Encounter for general adult medical examination without abnormal findings (principal); M05.9 Rheumatoid arthritis with rheumatoid factor, unspecified; E66.811 Obesity, class 1; Z68.33 Body mass index [BMI] 33.0-33.9, adult

== ENCOUNTER → 2024-08-12 14:22 | Outpatient (BNVA) | payer OTHER, SELFPAY | PROVIDERS: PCP Physician Assistant; Visit Provider Physician Assistant | DX: Z00.00 Encounter for general adult medical examination without abnormal findings (principal); M05.9 Rheumatoid arthritis with rheumatoid factor, unspecified; E66.811 Obesity, class 1; Z68.33 Body mass index [BMI] 33.0-33.9, adult; Z79.631 Long term (current) use of antimetabolite agent | CPT/HCPCS: 96127 ==

== ENCOUNTER 2024-10-01 07:49 | Outpatient (REF) | payer OTHER, SELFPAY ==
--- OUTSIDE RECORDS SUMMARY | 2024-10-01 07:51 | XMS_ITS | Clinical Summary ---
Author Organization [facility] Address [address] [place] [phone] Phone Care Team Providers Care Oil Field Equipment Mechanic Supervisor Name Role Phone Dorothy Vidal Primary Care Provider [phone]- [phone] Allergies No known active allergies Medications CIMZIA 400 mg/2 mL (200 mg/mL x 2) SyKt subcutaneous syringe 02/20/20 24 Active folic acid (FOLVITE) 1 MG tablet 12/23/19 24 Active methotrexate 2.5 mg/mL Soln Active TYLER 0.35 mg tablet Active doxycycline monohydrate (MONODOX) 100 MG capsule Take 1 capsule (100 mg total) by mouth 2 (two) times a day. 20 capsule 02/23/20 24 Active Additional Information Patient not taking.Reported on 09/12/2024 ZEPBOUND 10 mg/0.5 mL subcutaneous pen INJECT 10 MG UNDER THE SKIN EVERY WEEK 08/18/19 25 Active ZEPBOUND 7.5 mg/0.5 mL subcutaneous pen ADMINISTER 7.5 MG UNDER THE SKIN EVERY WEEK 07/17/19 25 Active methotrexate 2.5 MG Oral tablet 07/09/19 25 Active albuterol 90 mcg/actuation inhalerIndicatio ns:Acute viral bronchitis Inhale 1-2 puffs into the lungs every 4 (four) hours as needed for wheezing or shortness of breath/dyspnea. 8 g 09/13/19 25 Active inhaler spacing device (AEROCHAMBER,JOHNNY ATHERITE) SpcrIndications: Acute viral bronchitis Inhale 1 each into the lungs every 4 (four) hours as needed (PRN). 1 each 09/13/19 25 Active albuterol 90 mcg/actuation inhaler Inhale 2 puffs into the lungs every 6 (six) hours as needed. 8.5 g 02/23/20 24 025 Discontinu ed(No longer taking) benzonatate (TESSALON) 100 MG capsuleIndicatio ns:Acute viral bronchitis Take 1 capsule (100 mg total) by mouth nightly at bedtime as needed for cough. 7 capsule 09/13/19 25 025 Active Problems Problem Noted Date Diagnosed Date Diverticulitis large intesti ne w/o perforation or abscess w/bleeding 02/23/2024 Polyarthralgia 02/23/2024 Encounters Date Type Department Care Team Description 09/12/2024 1:30 PM EDT Hospital Encounter [facility] [address] [place] [id number] Joel Marie PA-C 09/12/2024 11:50 AM EDT Office Visit [facility] at [address] [address] Joel Marie PA-C Acute viral bronchitis (Primary Dx) from Last 3 Months Immunizations No known immunizations Social History Tobacco Use Types Packs/Day Years Used Date Smoking Tobacco: Never Smokeless Tobacco: Never Tobacco Cessation:Counseling Given: Not Answered Education Answer Date Recorded Are you interested [...] on file Sexual Orientation Not on file Last Filed Vital Signs Vital Sign Reading Time Taken Comments Blood Pressure 94/66 09/12/2024 12:33 PM EDT Pulse 98 09/12/2024 12:33 PM EDT Temperature 37 C (98.6 F) 09/12/2024 12:33 PM EDT Respiratory Rate 16 09/12/2024 12:33 PM EDT Oxygen Saturation 99% 09/12/2024 12:33 PM EDT Inhaled Oxygen Concentration - - Weight 89.4 kg (197 lb) 09/12/2024 12:33 PM EDT Height 170.2 cm (5' 7 ) 09/12/2024 12:33 PM EDT Body Mass Index 30.85 09/12/2024 12:33 PM EDT Plan of Treatment Health Maintenance Due Date Last Done Comments DEPRESSION SCREENING 1994 HEPATITIS C SCREENING 2000 HIV ONE-TIME SCREENING (18-65 YEARS) 2000 PNEUMOCOCCAL VACCINES (0-49 years) (1 of 2 - PCV) 2001 PAP SMEAR 09/19/2003 SCREENING FOR DIABETES 2017 MAMMOGRAM 2022 COVID-19 VACCINE (6 - Moderna risk season) 2024 12/16/2023, 01/26/2022, 02/20/2021, Additional history exists Adult Td,Tdap Booster 07/24/2031 07/23/2021 SMOKING STATUS SCREENING (Once After 26 Yrs) Completed 09/12/2024 HEPATITIS A VACCINES Aged Out No long er eligible based on patient's age to complete this topic HIB VACCINES Aged Out No longer eligi ble based on patient's age to complete this topic MENINGOCOCCAL VACCINES (ACWY) Aged Out No longer eligible based on patient's age to complete this topic MENINGOCOCCAL VACCINES (B) Aged Out N o longer eligible based on patient's age to complete this topic Medical Devices Not on file Procedures Procedure Name Priority Date/Time Associated Diagnosis Comments XR CHEST PA AND LATERAL 2 VIEWS Urgent/patient waiting 09/12/2024 1:41 PM EDT Acute viral bronchitis POCT COVID-19 RT-PCR/INFLUENZA A & B/RSV CEPHEID Routine 09/12/2024 12:37 PM EDT Acute viral bronchitis from Last 3 Months Results * XR CHEST PA AND LATERAL 2 VIEWS (09/12/2024 1:41 PM EDT) Anatomical Region Laterality Modality Chest Computed Radiogr aphy 09/12/2024 2:08 PM EDT Impressions 09/12/2024 2:08 PM EDT No pneumonia or acute cardiopulmonary process. Narrative 09/12/2024 2:08 PM EDT XR CHEST PA AND LATERAL 2 VIEWS Referring clinician's provided indication for this examination in [facility]: Cough; Dyspnea (Shortness of Breath); cough, SOB, [...] clinician's provided indication for this examination in [facility]:Cough; Dyspnea (Shortness of Breath); cough, SOB, lightheadedness [...] PA-C IMG XR CHEST Alisha l Result * POCT COVID-19 RT-PCR/Influenza A & B/RSV (Cepheid) (09/12/2024 12:37 PM EDT) [facility] RSV PCR Negative Negative [facility] SARS-CoV-2 (COVID-19) Negative Negative [facility] Influenza A PCR Negative Negative [facility] Influenza B PCR Negative Negative [facility] 09/12/2024 12:3 7 PM EDT 09/12/2024 1:17 PM EDT Joel Marie PA-C POINT OF CARE TEST O RDERABLES Final Result [facility] [address] [address], [facility] [phone] from Last 3 Months Insurance [place] [address] [facility] PPO [facility] CIG DENTAL Care Teams Oil Field Equipment Mechanic Supervisor Relationship Specialty Start Date End Date Dorothy Vidal PA PCP - General Physician Computing Services Director 02/23/24 Additional Source Comments The information contained in this document represents components of the legal health record. It is not the complete legal health record.[facility]
--- OUTSIDE RECORDS SUMMARY | 2024-10-01 07:51 | XMS_ITS | Clinical Summary ---
Author Organization [facility] ity Address [address] [place] [address] Care Team Providers Care Noodle Press Operator Name Role Phone Unavailable Primary Care Provider [...] Vaccine (2023-2 5 season) 2023 Influenza Vaccine (#1) 2024 HIB Vaccines Aged Out No longer [...] 5 Years) and At-Risk Patients (6 to 49 Years) Aged Out No longer eligible b ased on patient's age to complete this topic RSV Immunization Patients Un ifeanyi 20 months Aged Out No longer eligible b ased on patient's age to complete this topic Varicella Vaccines Aged Out No longer eligible based on patient's age to complete this topic
[2024-10-01 11:14] LABS: MANUAL DIFF FLAG NO
[2024-10-01 11:33] LABS: Hematocrit 36.5 % (37.0-47.0); Hemoglobin 12.6 g/dl (12.0-16.0); Imm Gran Abs Auto 0.01 X10*3/uL (0.00-0.03); Imm Gran Pct Auto 0.2 % (0.0-0.4); Lymphocytes Absolute Auto 1.9 X10*3/uL (1.2-4.9); Mean Corpuscular HGB Conc 34.5 g/dl (31.0-35.0); Mean Corpuscular Hemoglobin 30.7 pg (27.0-33.0); Mean Corpuscular Volume 88.8 fL (80.0-98.0); NRBC Abs Auto 0.000 X10*3/uL (0.0-0.012); NRBC Pct Auto 0.0 /100WBC (0.0-0.2); Platelet Count 458 X10*3/uL (160-400); Red Blood Count 4.11 X10*6/uL (4.20-5.50); White Blood Count 5.0 X10*3/uL (4.8-10.8)
[2024-10-01 11:47] LABS: Alanine Aminotransferase 16 U/L (0-31); Albumin Level 4.3 g/dL (3.5-5.0); Alkaline Phosphatase 46 U/L (39-117); Anion Gap 10 (12-20); Aspartate Amino Transferase 26 U/L (5-31); Blood Urea Nitrogen 15 mg/dL (9-16); Calcium 8.9 mg/dL (8.4-10.2); Carbon Dioxide 22 mmol/L (22-29); Chloride 110 mmol/L (96-108); Cholesterol 176 mg/dL (<200); Estimated Glomerular Filt Rate > 60; HDL Cholesterol 37 mg/dL (>40); Potassium 3.9 mmol/L (3.3-5.1); Sodium 138 mmol/L (135-145); Total Protein 7.5 g/dL (6.5-8.0); Triglycerides 99 mg/dL (<150)
== END 2024-10-01 07:50 | disposition home or self-care (01) ==
LOC: HO.WFDLDS 07:49
PROVIDERS: Referring Provider Student in an Organized Health Care Education/Training Program; Visit Provider Physician Assistant
DX: Z00.00 Encounter for general adult medical examination without abnormal findings (principal); M05.9 Rheumatoid arthritis with rheumatoid factor, unspecified; Z13.220 Encounter for screening for lipoid disorders; E66.01 Morbid (severe) obesity due to excess calories
CPT/HCPCS: 36415; 80053; 80061; 85025; 85652; 86140

== ENCOUNTER 2024-12-24 15:31 | Outpatient (AMB) | payer OTHER, SELFPAY ==
--- NOTE | 2024-12-24 15:32 | MHC.OFFVIS ---
Vital Signs 12/24/24 15:33 Height 5 ft 6 in Weight 177 lb 0.499 oz BMI 28.6 BP 110/80 Blood Pressure Location Lt brachial Position Sitting Pulse 105 H Pulse Source Pulse Oximeter Pulse Oximetry (%) 99 Oxygen Delivery Method Room Air Intake Visit Reasons: f/u RA Intake Note: Patient presents for follow up on RA and lab review. Accompanied by: Self / Same As Patient Allergies No Known Allergies Allergy (Verified 12/24/24 15:32) Medication List - Last Reconciled 12/24/24 by Teetee Ocampo MD acetaminophen (Tylenol Extra Strength) 1,000 mg PO Q6H PRN Cimzia (certolizumab pegol) 200 mg subcut Q2W NS folic acid 1 mg PO DAILY methotrexate sodium 15 mg (6 x 2.5 mg) PO QWEEK 90 days norethindrone (contraceptive) (Lianne) 0.35 mg PO DAILY tirzepatide (weight loss) (Zepbound) 15 mg (0.5 mL) subcut QWEEK HPI Comments Details: Patient is a 44-year-old female with psoriasis and seropositive rheumatoid arthritis here today for follow up Interval History: Patient last seen 06/18/24 with me - On Cimzia 200mg SC every 2 weeks, methotrexate 15mg weekly and folic acid - She is doing well overall but notices more knee and alcantara pain and the end of the day 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 - No AM stiffness Today, - On Cimzia 200mg SC every 2 weeks, methotrexate 15mg weekly and folic acid - Alcantara pain and knee pain improved with weightloss - Feels like over the past couple months when she bends down she feels a burning sensation in her nose that it is going to bleed but doesn't - Had bronchitis back in September - Does not use nasal sprays Rheumatologic History: ++RF+++CCP MTX 08/2019, Humira added December 2019 due to active disease. 06/03/2020 switch to Enbrel due to active disease, Enbrel was denied and patient was started on Cimzia MTX 08/2019-present Cimzia- May 2020-present effective Initial history: Patient has a history of mild right side carpal tunnel based on EMG done in May 2017. She was evaluated by neurologist at that time and thoughts to possibly have fibromyalgia as well. Pt reports diffuse arthralgia that has been present for years and slowly worsening. Pain occurs daily, worse at morning and night, feels better during the day. Pain is unchanged with activity. Pain is worse with cold weather. Diffuse morning stiffness that can last up to 2 hours. New onset swelling in her fingers and feet for the last 2 weeks. Had a cold approx 2 weeks ago that lasted a few days and then resolved. No GI symptoms or fever. Pt denies Raynauds, photosensitivity, oral or nasal ulcers, Sicca symptoms, fevers, alopecia. No history of miscarriage. No family history of RA, SLE or psoriasis. Current Rheumatology Medication(s): Cimzia 200 mg every other week sc Methotrexate 15 mg weekly Folic acid 1 mg daily PFSH Medical History Carpal tunnel syndrome Plantar fasciitis Obesity, morbid, BMI 40.0-49.9 Rash, skin Psoriasis (a type of skin inflammation) Seropositive rheumatoid arthritis Surgical History Hx of colonoscopy H/O esophagogastroduodenoscopy History of surgery History of carpal tunnel surgery Hx of tubal ligation H/O breast biopsy Hx of bilateral breast reduction surgery Family History Mother No problems noted. Father No problems noted. 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 Current occupational exposures/hazards: No Cognitive needs: No Hearing needs: No Vision needs: No Review of Systems Const Details: Review of Systems Constitutional: Denies fever, chills, weight loss ENT: Denies vision changes, eye pain or eye redness, dental caries, dry mouth GI: Denies nausea, vomiting, diarrhea, abdominal pain, change in BM Pulm: Denies SOB, RODARTE, hemoptysis, wheezing Cards: Denies chest pain, palpitations Skin: Denies Raynaud's, rash, nail changes, photosensitivity, TAKE DOWN SORTER: Denies headaches, weakness, paresthesias, recurrent falls MSK: as per HPI All other systems reviewed and are unremarkable except noted above Physical Exam Exam Exam: Vital signs reviewed Physical Examination CONSTITUITIONAL Patient alert and cooperative. Well appearing and in no apparent painful distress MSK Hands Right Hand: Able to make a fist. No swelling or tenderness to palpation of the MCPs, PIPs or DIPs. No deformities noted. Left Hand: Able to make a fist. No swelling or tenderness to palpation of the MCPs, PIPs or DIPs. No deformities noted. Wrists Right Wrist: Full ROM to flexion and extension. No swelling or TTP Left Wrist: Full ROM to flexion and extension. No swelling or TTP Elbows Right Elbow: Full ROM. No swelling or TTP. No TTP of the medial epicondyle. No TTP of the lateral epicondyle Left Elbow: Full ROM. No swelling or TTP. No TTP of the medial epicondyle. No TTP of the lateral epicondyle Shoulders Right shoulder: Full ROM. No swelling noted. No TTP of the AC joint. No TTP of the subacromial bursa. No TTP of the posterior shoulder Left shoulder: Full ROM. No swelling noted. No TTP of the AC joint. No TTP of the subacromial bursa. No TTP of the posterior shoulder Knees Right knee: Full ROM. No swelling noted. No TTP of the knee joint line. No TTP of pes anserine bursa Left knee: Full ROM. No swelling noted. No TTP of the knee joint line. No TTP of pes anserine bursa. Ankles Right ankle: Good ankle dorsiflexion and plantar flexion. No swelling. No TTP of the ankle joint Left ankle: Good ankle dorsiflexion and plantar flexion. No swelling. No TTP of the ankle joint Feet Right foot: Negative squeeze test Left foot: Negative squeeze test Tender points? No tenderness to palpation of the bilateral trapezius, supraspinatus, anterior costochondral junctions, bilateral suboccipital muscle insertions SKIN No rashes Vital Signs: Last Vital Signs Pulse 105 H 12/24/24 15:33 BP 110/80 12/24/24 15:33 Pulse Ox 99 12/24/24 15:33 Oxygen Delivery Method Room Air 12/24/24 15:33 BMI result Body Mass Index 28.6 Results Reviewed Results Reviewed: Laboratory Tests 10/01/24 07:51 WBC 5.0 RBC 4.11 L Hgb 12.6 Hct 36.5 L Plt Count 458 H ESR 18 Sodium 138 Potassium 3.9 Chloride 110 H Carbon Dioxide 22 BUN 15 Creatinine 0.72 AST 26 ALT 16 C-Reactive Protein 0.27 Immunology labs 08/12/19 12:35 Rheumatoid Factor 52.8 H Cycl Citrul Peptide IgG >250 H ABIGAIL Screen Negative Infectious serologies 02/20/24 07:33 Hepatitis A IgM Ab Nonreactive Hep Bs Antigen Negative Hep Bs Antibody REACTIVE Hep B Core Total Ab Nonreactive Hepatitis C Ab (EIA) Nonreactive TB Test (T-Spot) Com NEGATIVE Assessment & Plan Assessment & Plan (1) Seropositive rheumatoid arthritis: Comment: ++RF+++CCP MTX 08/2019, Humira added December 2019 due to active disease. 06/03/2020 switch to Enbrel due to active disease, Enbrel was denied and patient was started on Cimzia MTX 08/2019-present Cimzia- May 2020-present effective Code(s): M05.9 - Rheumatoid arthritis with rheumatoid factor, unspecified Category: Medical Plan: #Seropositive RA Patient is a 44-year-old female with seropositive rheumatoid arthritis here today for follow up. Currently in remission. Plan - Cimzia 200mg SC every 2 weeks - Methotrexate 15mg PO weekly - Folic acid 1mg daily - Labs today: CBC, CMP, ESR, CRP, Hepatitis panel and T spot - RTC 6 months - labs before follow up: CBC, CMP, ESR, CRP (2) assisted methotrexate user: Code(s): Z79.899 - Other terminal gauger supervisor (current) drug therapy Category: Medical Plan: #Long-term Current Use of Methotrexate Discussed with patient the benefits and risks of methotrexate for managing their rheumatic condition Benefits include reduced pain, reduced mortality, maintenance of remission and reduction of flares Risks include oral ulcers, photosensitivity, hepatotoxicity, hematologic toxicity, pneumonitis, flu-like symptoms (especially day after administration), nodulosis, lymphomas ? Limit alcohol and avoid Bactrim ? Monitoring: ?CBC, BMP, LFTs every 3-4 months and hepatitis serologies as needed ? Methotrexate is teratogenic. ?If planning need to discontinue 3 months prior to conception. Had a BSO. No fertility desires (3) Encounter for monitoring certolizumab therapy: Code(s): Z51.81 - Encounter for therapeutic drug level monitoring; Z79.620 - assisted (current) use of immunosuppressive biologic Plan: #Long-term Use of TNF Inhibitors: Cimzia Discussed with the patient the benefits and risks of TNF inhibitors for the management of the rheumatic condition Benefits include reduce pain, maintenance of remission and reduction of flares as well as ?progression of the disease Risks include injection sites/infusion reactions, serious infections (such as bacterial infections, opportunistic infections), malignancy, delaminating syndromes, autoimmune phenomena, CHF exacerbations, palmar plantar psoriasis and cytopenias Recommended rotating injection sites, and holding medication during and for up to 1 week after resolution of a febrile illness or open skin wound Plan I spent 30 minutes reviewing the record and labs, taking a history, examining the patient, discussing the treatment plan, ordering diagnostic work up and documenting in the medical record Orders: Orders Erythrocyte Sedimentation Rate 6 Months Z79.899 - Other senior living (current) drug therapy Comprehensive Met. Panel 6 Months Z79.89 - Other senior living (current) drug therapy Hepatitis B,C Profile Today Z79. - Other terminal gauger supervisor (current) drug therapy T Spot TB Today Z79.89 - Other terminal gauger supervisor (current) drug therapy C Reactive Protein 6 Months Z79.89 - Other senior living (current) drug therapy Complete Blood Count Auto Diff 6 Months Z79.89 - Other terminal gauger supervisor (current) drug therapy Medications: Refilled folic acid 1 mg PO DAILY 90 caps 1RF M05.9 - Rheumatoid arthritis with rheumatoid factor, unspecified methotrexate sodium 15 mg (6 x 2.5 mg) PO QWEEK 78 tabs 1RF 90 days M05.9 - Rheumatoid arthritis with rheumatoid factor, unspecified Cimzia (certolizumab pegol) 200 mg subcut Q2W 2 ea 5RF NS M05.9 - Rheumatoid arthritis with rheumatoid factor, unspecified Coding Level of Care Code Est Pt Level 4 (59506) Complex EM visit Add On G2211 Diagnoses Seropositive rheumatoid arthritis M05.9 bed bug exterminator methotrexate user Z79.899 Encounter for monitoring certolizumab therapy Z51.81; Z79.620
[2024-12-24 15:33] VITALS: BP 110/80; PULSE 105; O2SAT 99; BMI 28.6
== END 2024-12-24 16:38 | disposition home or self-care (01) ==
LOC: HO.RHES 15:32
PROVIDERS: PCP Physician Assistant; Visit Provider Student in an Organized Health Care Education/Training Program
DX: M05.9 Rheumatoid arthritis with rheumatoid factor, unspecified (principal); Z79.899 Other long term (current) drug therapy; Z51.81 Encounter for therapeutic drug level monitoring; Z79.620 Long term (current) use of immunosuppressive biologic
CPT/HCPCS: 99214; G2211

== ENCOUNTER 2024-12-30 11:36 | Outpatient (REF) | payer OTHER, SELFPAY ==
--- OUTSIDE RECORDS SUMMARY | 2024-02-23 15:32 | XMS_ITS | Encounter Summary ---
Author Organization [facility] Address [address] [facility] [address] [place] [address] Phone Care Team Providers Care Offal Separator Name Role Phone Dorothy Vidal Primary Care Provider [phone] Encounter Details Date Type Department Care Team (Late st Contact Info) Description 02/23/2024 2:32 PM EST Hospital Encounter [facility] [address] [place] [id number] Nhi Cook CNP [address] [place] [id number] [email or web address] Social History Tobacco Use Types Packs/Day Years Used Date Smoking Tobacco: Never Smokeless Tobacco: Never Education Answer Date Recorded Are you interested in more education? Not on sonal e 02/23/2024 Are you concerned about learning? Not on file 02/23/2024 No 02/23/2024 No 02/23/2024 Digital Access Answer Date Recorded No 02/23/2024 No 02/23/2024 Reliable internet access at home? Not on file 02/23/2024 Device with a working camera? Not on file Comments No Sex and Gender Information Value Date Recorded Sex Assigned at Not on file Legal Sex Female 12:03 PM EST Gender Identity Not on file Sexual Orientation Not on file documented as of this encounter Plan of Treatment Not on file documented as of this encounter Procedures Procedure Name Priority Date/Time Associated Diagnosis Comments XR CHEST PA AND LATERAL 2 VIEWS Urgent/patient waiting 02/23/2024 2:38 PM EST Shortness of breath documented in this encounter Results * XR CHEST PA AND LATERAL 2 VIEWS (02/23/2024 2:38 PM EST) Anatomical Region Laterality Modality Chest Computed Radiogr aphy 02/23/2024 2:53 PM EST Impressions 02/23/2024 3:22 PM EST Mild hazy opacity at the left lateral lung base may reflect atelectasis or emerging pneumonia in the appropriate clinical setting. A clinically significant result was initiated on 02/23/2024 3:22 PM, Message ID [id number]. ATTESTATION: Erick Huizar as teaching physician, have reviewed the images for this case and if necessary edited the report originally created by Devin Gilliam. Narrative 02/23/2024 3:22 PM EST XR CHEST PA AND LATERAL 2 VIEWS Referring clinician's provided indication for this examination in [facility]: Cough; Dyspnea (Shortness of Breath); LLL rales COMPARISON: None FINDINGS: Devices/Tubes/Lines: None. Lungs: No consolidation. Mild hazy opacity at the left lateral lung base. Remainder of lungs is clear. No pulmonary edema. Pleura: No pleural effusion or pneumothorax. Heart/Mediastinum: Normal heart and mediastinum. Bones/Soft Tissues: Degenerative changes of the thoracic spine. Procedure Note Darwin Vallecillo MD, MPH - 02/23/2024 XR CHEST PA AND LATERAL 2 VIEWS Referring clinician's provided indication for this examination in [facility]:Cough; Dyspnea (Shortness of Breath); LLL rales COMPARISON: None FINDINGS: Devices/Tubes/Lines: None. Lungs: No consolidation. Mild hazy opacity at the left lateral lung base.Remainder of lungs is clear. No pulmonary edema. Pleura: No pleural effusion or pneumothorax. Heart/Mediastinum: Normal heart and mediastinum. Bones/Soft Tissues: Degenerative changes of the thoracic spine. IMPRESSION: Mild hazy opacity at the left lateral lung base may reflect atelectasis oremerging pneumonia in the appropriate clinical setting. A clinically significant result was initiated on 02/23/2024 3:22 PM,Message ID [id number]. ATTESTATION: I, Erick Vallecillo as teaching physician, have reviewed theimages for this case and if necessary edited the report originally createdby Devin Gilliam. us Nhi Cook CLIENT SUPPORT ASSOCIATE IMG XR CHEST Final Resul t documented in this encounter Visit Diagnoses Not on filedocumented in this encounter Care Teams Offal Separator Relationship Specialty Start Date End Date Dorothy Vidal PA [address] [place] [phone] PCP - General Physician Decorator [employer]ing [employer]xtures 02/23/24 documented as of this encounter Additional Source Comments The information contained in this document represents components of the legal health record. It is not the complete legal health record.[facility]
--- OUTSIDE RECORDS SUMMARY | 2024-09-12 13:30 | XMS_ITS | Encounter Summary ---
Author Organization [facility] Address [address] [place] [address] Phone Care Team Providers Care Hydroelectric Plant Structural Engineer Name Role Phone Dorothy Vidal Primary Care Provider [phone] Encounter Details Date Type Department Care Team (Late st Contact Info) Description 09/12/2024 1:30 PM EDT Hospital Encounter [facility] [address] [place] [id number] Joel Marie PA-C [address] [facility], [address] [place] [address] [email or web address] Social History Tobacco Use Types Packs/Day Years [...] PA AND LATERAL 2 VIEWS Urgent/patient waiting 09/12/2024 1:41 PM EDT Acute viral bronchitis documented in this encounter Results * XR CHEST PA AND LATERAL 2 VIEWS (09/12/2024 1:41 PM EDT) Anatomical Region Laterality Modality Chest Computed Radiogr aphy 09/12/2024 2:08 PM EDT Impressions 09/12/2024 2:08 PM EDT No pneumonia or acute cardiopulmonary process. Narrative 09/12/2024 2:08 PM EDT XR CHEST PA AND LATERAL 2 VIEWS Referring clinician's provided indication for this examination in Psychiatric: Cough; Dyspnea (Shortness of Breath); cough, SOB, lightheadedness x 6 days COMPARISON: XR CHEST PA AND LATERAL 2 VIEWS FINDINGS: Devices/Tubes/Lines: None. Lungs: No focal consolidation or pulmonary edema. Pleura: No pleural effusion or pneumothorax. Heart/Mediastinum: Normal cardiac silhouette. Normal mediastinal contours. Bones/Soft Tissues: No acute osseous abnormality. Mild multilevel degenerative changes of the thoracic spine. Procedure Note Tc Jurado MD - 09/12/2024 XR CHEST PA AND LATERAL 2 VIEWS Referring clinician's provided indication for this examination in Psychiatric:Cough; Dyspnea (Shortness of Breath); cough, SOB, lightheadedness x 6days COMPARISON: XR CHEST PA AND LATERAL 2 VIEWS FINDINGS: Devices/Tubes/Lines: None. Lungs: No focal consolidation or pulmonary edema. Pleura: No pleural effusion or pneumothorax. Heart/Mediastinum: Normal cardiac silhouette. Normal mediastinalcontours. Bones/Soft Tissues: No acute osseous abnormality. Mild multileveldegenerative changes of the thoracic spine. IMPRESSION: No pneumonia or acute cardiopulmonary process. Joel Marie PA-C IMG XR CHEST Alisha l Result documented in this encounter Visit Diagnoses Not on filedocumented in this encounter Care Teams Hydroelectric Plant Structural Engineer Relationship Specialty Start Date End Date Dorothy Vidal PA [address] [place] [id number] PCP - General Physician Vocal Teacher 02/23/24 documented as of this encounter Additional Source Comments The information contained in this document represents components of the legal health record. It is not the complete legal health record.[facility]
[2024-12-30 14:12] LABS: MANUAL DIFF FLAG NO
[2024-12-30 14:20] LABS: Hematocrit 37.9 % (37.0-47.0); Hemoglobin 13.0 g/dl (12.0-16.0); Imm Gran Abs Auto 0.01 X10*3/uL (0.00-0.03); Imm Gran Pct Auto 0.2 % (0.0-0.4); Lymphocytes Absolute Auto 1.9 X10*3/uL (1.2-4.9); Mean Corpuscular HGB Conc 34.3 g/dl (31.0-35.0); Mean Corpuscular Hemoglobin 31.1 pg (27.0-33.0); Mean Corpuscular Volume 90.7 fL (80.0-98.0); NRBC Abs Auto 0.000 X10*3/uL (0.0-0.012); NRBC Pct Auto 0.0 /100WBC (0.0-0.2); Platelet Count 409 X10*3/uL (160-400); Red Blood Count 4.18 X10*6/uL (4.20-5.50); White Blood Count 5.2 X10*3/uL (4.8-10.8)
--- OUTSIDE RECORDS SUMMARY | 2024-12-30 14:57 | XMS_ITS | Clinical Summary ---
Author Organization [facility] Address [address] [place], [place] [address] [place] [address] Phone Care Team Providers Care 7Th Grade Teacher Name Role Phone Dorothy Vidal Primary Care Provider [phone] Allergies No known active allergies Medications CIMZIA 400 mg/2 mL (200 mg/mL x 2) SyKt subcutaneous syringe 4 Active folic acid (FOLVITE) 1 MG tablet 4 Active methotrexate 2.5 mg/mL Soln Active TYLER 0.35 mg tablet Active doxycycline monohydrate (MONODOX) 100 MG capsule Take 1 capsule (100 mg total) by mouth 2 (two) times a day. 20 capsule 4 Active Additional Information Patient not taking.Reported on 09/12/2024 ZEPBOUND 10 mg/0.5 mL subcutaneous pen INJECT 10 MG UNDER THE SKIN EVERY WEEK 5 Active ZEPBOUND 7.5 mg/0.5 mL subcutaneous pen ADMINISTER 7.5 MG UNDER THE SKIN EVERY WEEK 5 Active methotrexate 2.5 MG Oral tablet 5 Active albuterol 90 mcg/actuation inhalerIndicatio ns:Acute viral bronchitis Inhale 1-2 puffs into the lungs every 4 (four) hours as needed for wheezing or shortness of breath/dyspnea. 8 g 5 Active inhaler spacing device (AEROCHAMBER,JOHNNY ATHERITE) SpcrIndications: Acute viral bronchitis Inhale 1 each into the lungs every 4 (four) hours as needed (PRN). 1 each 5 Active Active Problems Problem Noted Date Diagnosed Date Diverticulitis large intesti ne w/o perforation or abscess w/bleeding 02/23/2024 Polyarthralgia 02/23/2024 Immunizations No known immunizations Social History Tobacco [...] 09/19/2003 SCREENING FOR DIABETES 2017 MAMMOGRAM 2022 INFLUENZA VACCINE (#1) 2024 , 12/20/2022, 12/22/2021, Additional history exists COVID-19 VACCINE ( season) 2024 12/16/2023, 01/26/2022, 02/20/2021, Additional history [...] this topic Medical Devices Not on file Insurance aihuishou O UMR aihuishou [facility] UMR [facility] PPO U[employer] [place] P[employer] U[employer] [facility] P[facility] UMR [facility] PPO UMR [employer] Care Teams 7Th Grade Teacher Relationship Specialty Start Date End Date Dorothy Vidal PA [address], [place] [id number] PCP - General Physician Drilling Assistant 02/23/24 Additional Source Comments The information contained in this document represents components of the legal health record. It is not the complete legal health record.[facility]
--- OUTSIDE RECORDS SUMMARY | 2024-12-30 14:58 | XMS_ITS | Clinical Summary ---
[facility] Organization [facility] Address [address] [place] [address] Care Team Providers Care Spa Receptionist Name Role Phone Unavailable Primary Care Provider [...] Cervical Cancer Screening: P ap Smear 09/19/2003 HPV Vaccines (1 - 3-dose SCD M series) 2009 Depression Screening 03/17/2024 COVID-19 Vaccine ( - 2023-2 5 season) 2024 Influenza Vaccine (#1) 2024 RSV Immunization Adult Patie nts (1 - 1-dose 75+ series) 2057 HIB Vaccines Aged Out No longer eligi [...]
[2024-12-30 15:01] LABS: Alanine Aminotransferase 15 U/L (0-31); Albumin Level 4.6 g/dL (3.5-5.0); Alkaline Phosphatase 39 U/L (39-117); Anion Gap 10 (12-20); Aspartate Amino Transferase 18 U/L (5-31); Blood Urea Nitrogen 15 mg/dL (9-16); Calcium 9.0 mg/dL (8.4-10.2); Carbon Dioxide 21 mmol/L (22-29); Chloride 111 mmol/L (96-108); Estimated Glomerular Filt Rate > 60; Potassium 4.0 mmol/L (3.3-5.1); Sodium 138 mmol/L (135-145); Total Protein 7.6 g/dL (6.5-8.0)
[2024-12-30 15:03] LABS: HBc Num1 0.09 S/CO (0.00-0.79); HBsAGNum1 0.35 S/CO (0.00-0.99); Hepatitis B Surface Antigen Negative (Negative); ~HepC Num1 0.08 S/CO (0.00-0.79); ~Hepatitis B Surface Antibody REACTIVE (Nonreactive); ~Hepatitis C Antibody Nonreactive (Nonreactive)
[2025-01-01 19:37] LABS: TS Negative Control Passed; TS Panel A 0; TS Panel B 0; TS Positive Control Passed; TSpotTB Negative (Negative)
== END 2024-12-30 11:37 | disposition home or self-care (01) ==
LOC: HO.WFDLDS 11:36
PROVIDERS: Visit Provider Student in an Organized Health Care Education/Training Program
DX: Z11.1 Encounter for screening for respiratory tuberculosis (principal); Z79.899 Other long term (current) drug therapy
CPT/HCPCS: 36415; 80053; 85025; 85652; 86140; 86481; 86704; 86706; 86803; 87340